=== PATIENT | male | born 1935 | race African-American/Black ===

== ENCOUNTER → 2017-12-14 | Outpatient (CLI) | payer MEDICARE ==
[2017-12-14 10:29] LABS: Anisocytosis Slight; HCT 45.6 % (39.0-53.0); HGB 14.6 gm/dL (13.0-17.5); Microcytosis Slight; Platelet Count 159 k/uL (150-450); RBC 5.85 m/uL (4.30-5.90); RDW 16.8 % (11.5-15.5); WBC 8.3 k/uL (3.8-10.6)
[2017-12-14 10:35] LABS: Anion Gap 10 mmol/L; Blood Urea Nitrogen 18 mg/dL (9-20); Carbon Dioxide 30 mmol/L (22-30); Chloride 101 mmol/L (98-107); Potassium 4.5 mmol/L (3.5-5.1); Sodium 141 mmol/L (137-145)
== END | disposition home or self-care (01) ==
LOC: LABWHC1 10:01
PROVIDERS: ATTEND Internal Medicine Interventional Cardiology
DX: Z01.812 Encounter for preprocedural laboratory examination (principal); R94.39 Abnormal result of other cardiovascular function study
CPT/HCPCS: 36415; 80051; 82565; 84520; 85027

== ENCOUNTER → 2017-12-18 | Day surgery (SDC) | payer MEDICARE ==
[2017-12-14 10:49] VITALS: BMI 29.5
[~2017-12-18] MED LIST: ALPRAZolam 0.25 MG TAB PO PRN; ALPRAZolam 0.5 MG TAB PO PRN; ASPIRIN 325 MG TAB PO STA; ATORVASTATIN 80 MG TAB PO STA; NITROGLYCERIN SL TABS 0.4 MG TAB SUBLINGUAL PRN; SODIUM CHLORIDE 0.9% 1,000 ML in EMPTY BAG 1 BAG IV ONE
[2017-12-18 09:54] VITALS: BP 127/67; PULSE 75; RESP 18; TEMP 97.6
== END ==
LOC: CATHCVL 09:31
PROVIDERS: ATTEND Internal Medicine Interventional Cardiology
DX: R94.39 Abnormal result of other cardiovascular function study (principal); Z53.9 Procedure and treatment not carried out, unspecified reason

== ENCOUNTER 2017-12-19 09:49 | Day surgery (SDC) | payer MEDICARE ==
[2017-12-19 10:14] VITALS: TEMP 97.7
[2017-12-19] MEDS ORDERED: MIDAZOLAM 2 MG/2 ML VIAL ONE (11:23)
[2017-12-19] MEDS ORDERED: LIDOCAINE 1% INJ 10MG/ML (20 ML MDV) ONE (11:25)
[2017-12-19] MEDS ORDERED: fentaNYL (PF) 50 MCG/ML 2 ML AMP ONE (11:54)
[2017-12-19] MEDS ORDERED: fentaNYL (PF) 50 MCG/ML 2 ML AMP IVP ONE ×2 (11:57)
[2017-12-19] MEDS ORDERED: LIDOCAINE 1% INJ 10MG/ML (20 ML MDV) SQ ONE (11:57)
[2017-12-19] MEDS ORDERED: IOPAMIDOL-370 125ML BTL INJ ONE (12:08)
[2017-12-19] MEDS ORDERED: SODIUM CHLORIDE 0.9% 1,000 ML IV SCH (12:15)
[2017-12-19] MEDS ORDERED: RX INFO: IV CONTRAST WAS GIVEN 1 EACH MISC MISCELLANE PRN (12:15)
--- NOTE | 2017-12-19 13:01 | CC ---
CARDIAC CATHETERIZATION REPORT DATE OF SERVICE: 12/19/2017 PERFORMING PHYSICIAN: Logan Marie MD. PROCEDURE PERFORMED: 1. Selective right and left coronary angiogram. 2. Left heart catheterization. INDICATION: This is a pleasant 81-year-old gentleman with known history of coronary artery disease and prior stenting of the proximal LAD in the past, was experiencing recently intermittent episodes of chest discomfort. He underwent a stress test as an outpatient and that came in to be abnormal with evidence of ischemia. Because of that, a heart catheterization was recommended. APPROACH: Right common femoral artery. LEVEL OF SEDATION: Moderate with sedation length of 15 minutes. PROCEDURE DESCRIPTION: After obtaining an informed consent, the patient was brought to the cardiac clinical lab assistant. The right common femoral artery was cannulated using micropuncture technique. The micropuncture wire passed easily, then I placed a 6-Uzbek sheath in the right common femoral artery. After that, I did selective right and left coronary angiogram using JR4 and JL4 catheters. Left heart catheterization was performed using 6-Uzbek pigtail catheter. The procedure was completed without any complication. CORONARY ANGIOGRAM: 1. The RCA is a large caliber vessel. It is a dominant vessel. The proximal RCA has a lesion, appeared to be in the range of 70%. The mid RCA by the bifurcation of the acute marginal branch is chronically occluded and fills by collateral from the left coronary artery system. 2. The left main has mild disease only. It bifurcates into the circumflex and left anterior descending artery. 3. Left circumflex is a large caliber vessel. It is a nondominant vessel. The proximal circumflex has mild disease only and gives rise into the first OM branch which has moderate disease in the range of 50%. The mid circumflex appeared to be angiographically normal and gives rise into a second OM branch which has mild disease only. [id number] collaterals from the circumflex were seen. 4. The LAD, the proximal LAD appeared to be stented and the stent is patent. The mid LAD appeared to have mild disease only and the LAD distally has mild disease only. The LAD in the in the proximal portion gives rise into a diagonal branch which has an ostial disease appeared to be in the range of 60% to 70%. HEMODYNAMICS: The left ventricular end-diastolic pressure was 12 mmHg and no gradient was identified across the aortic valve. CONCLUSION: 1. 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 2. Intermediate disease involving the first obtuse marginal branch of the left circumflex. 3. Patent stent in the proximal left anterior descending artery. Intermediate to severe disease involving the ostial first diagonal branch of the left anterior descending artery. .. POSTPROCEDURE MANAGEMENT: 1. Maximize medical treatment. 2. Follow up with the patient. ANJALI / IJN: [id number] /
--- NOTE | 2017-12-19 13:04 | LTR ---
December 19, 2017 Re: Christoph Olvera Dear Dr. Rocha: Mr. Christoph Olvera underwent today a heart catheterization and that revealed patent stent in the proximal left anterior descending artery. As you remember, the stent was placed back in 2015. I want to thank you for allowing me to participate in his care and please do not hesitate to call if you have any question or concern. Sincerely, Logan Marie MD MMPRECIOUS / AARON: [id number] /
[2017-12-19 14:46] VITALS: PULSE 60
[2017-12-19 19:44] VITALS: BP 102/62; RESP 20
== END 2017-12-19 19:35 | disposition home or self-care (01) ==
LOC: CATHCVL 09:49
PROVIDERS: ATTEND Internal Medicine Interventional Cardiology
DX: I25.110 Atherosclerotic heart disease of native coronary artery with unstable angina pectoris (principal); I25.82 Chronic total occlusion of coronary artery; I10 Essential (primary) hypertension; E78.5 Hyperlipidemia, unspecified; Z87.891 Personal history of nicotine dependence; Z95.5 Presence of coronary angioplasty implant and graft; Z79.82 Long term (current) use of aspirin; Z79.899 Other long term (current) drug therapy
CPT/HCPCS: 93458; C1894; C1769; J2001; J3010; Q9967

== ENCOUNTER 2020-08-25 03:51 | Inpatient (IN) | payer MEDICARE ==
[2020-08-25] MEDS ORDERED: SODIUM CHLORIDE 0.9% 500 ML 500 ML IV STA ×2 (03:56→06:21)
[2020-08-25] MEDS ORDERED: DEXAMETHASONE SOD PHOSPHATE 10 MG/ML 1 ML VIAL IV STA (03:56)
[2020-08-25] MEDS ORDERED: ALBUTEROL HFA INHALER INHALATION STA (03:56)
[2020-08-25] MEDS ORDERED: KETOROLAC 15 MG/ML 1 ML VIAL IVP STA (03:56)
[2020-08-25] MEDS ORDERED: SODIUM CHLORIDE 0.9% 1,000 ML IV STA ×3 (03:56→06:21)
[2020-08-25] MEDS ORDERED: ACETAMINOPHEN TAB 500 MG TAB PO STA (03:56)
[2020-08-25] MEDS ORDERED: DILTIAZEM DRIP BOLUS FROM BAG 1 MG SOLN IV ONE (04:05)
[2020-08-25] MEDS ORDERED: DILTIAZEM 125 MG in SODIUM CHLORIDE 0.9% 100 ML IV SCH (04:15)
[2020-08-25 04:23] LABS: Basophils # (A) 0.1 k/uL (0-0.2); Basophils % (A) 1 %; Eosinophils % (A) 0 %; HCT 52.4 % (39.0-53.0); HGB 17.5 gm/dL (13.0-17.5); Lymphocytes # (A) 1.9 k/uL (1.0-4.8); Lymphocytes % (A) 25 %; MCH 27.8 pg (25.0-35.0); MCHC 33.5 g/dL (31.0-37.0); MCV 82.9 fL (80.0-100.0); Monocytes # (A) 0.3 k/uL (0-1.0); Monocytes % (A) 4 %; Neutrophils # (A) 5.1 k/uL (1.3-7.7); Neutrophils % (A) 67 %; Platelet Count 110 k/uL (150-450); RBC 6.32 m/uL (4.30-5.90); RDW 14.9 % (11.5-15.5); WBC 7.6 k/uL (3.8-10.6)
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
[2020-08-25 04:40] LABS: Albumin 4.2 g/dL (3.5-5.0); C Reactive Protein 58.7 mg/L (<10.0); Total Bilirubin 1.1 mg/dL (0.2-1.3); Total Protein 7.6 g/dL (6.3-8.2)
--- NOTE | 2020-08-25 04:55 | XR ---
EXAM: XR Chest, 1 View CLINICAL HISTORY: ITS.REASON XR Reason: Suspected COVID-19 pneumonia TECHNIQUE: Frontal view of the chest. COMPARISON: No relevant prior studies available. FINDINGS: Lungs: Moderate amount of airspace opacities over bilateral middle and lower lung zones. Pleural space: Unremarkable. No pneumothorax. Heart: Unremarkable. No cardiomegaly. Mediastinum: Unremarkable. Bones/joints: No acute findings. IMPRESSION: Bilateral pneumonia
[2020-08-25 04:59] LABS: Partial Thromboplastin Time 28.2 sec (22.0-30.0); Prothrombin Time 10.8 sec (9.0-12.0)
[2020-08-25 05:07] LABS: D-Dimer 0.91 mg/L FEU (<0.60)
[2020-08-25 05:23] LABS: Magnesium 2.1 mg/dL (1.6-2.3); Potassium 3.6 mmol/L (3.5-5.1)
[2020-08-25] MEDS ORDERED: NITROGLYCERIN SL TABS 0.4 MG TAB SUBLINGUAL PRN (06:21)
[2020-08-25] MEDS ORDERED: NALOXONE 0.4 MG/ML 1 ML VIAL IV PRN (06:21)
[2020-08-25] MEDS ORDERED: ONDANSETRON 4 MG/2 ML VIAL IVP PRN (06:21)
[2020-08-25] MEDS ORDERED: IBUPROFEN 400 MG TAB PO PRN (06:21)
[2020-08-25] MEDS ORDERED: ACETAMINOPHEN TAB 325 MG TAB PO PRN (06:21)
[2020-08-25] MEDS: SODIUM CHLORIDE 0.9% 1,000 ML IV SCH ×5 (07:04→17:37)
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
[2020-08-25] MEDS: APIXABAN 2.5 MG TABLET PO SCH ×2 (08:53→21:01)
[2020-08-25] MEDS: METOPROLOL TARTRATE 50 MG TAB PO SCH ×2 (08:53→21:01)
[2020-08-25] MEDS: ALBUTEROL HFA INHALER INHALATION SCH ×3 (08:59→21:05)
[2020-08-25] MEDS ORDERED: ENOXAPARIN 40 MG/0.4 ML SYRINGE SQ SCH (09:00)
--- NOTE | 2020-08-25 11:00 | ECHOF ---
Referral Reason:new atrial fibrillation, shortness of breath MEASUREMENTS -------- HEIGHT: 182.9 cm WEIGHT: 99.8 kg BP: IVSd: 1.2 cm (0.6 - 1.1) LVIDd: 4.1 cm (3.9 - 5.3) LVPWd: 1.1 cm (0.6 - 1.1) IVSs: 1.5 cm LVIDs: 1.7 cm LVPWs: 1.9 cm LAESV Index (A-L): 24.54 ml/m Ao Diam: 4.1 cm (2.0 - 3.7) AV Cusp: 2.0 cm (1.5 - 2.6) LA Diam: 3.1 cm (2.7 - 3.8) RAP: 20.00 mmHg RVSP: 54.86 mmHg FINDINGS -------- Atrial fibrillation. This was a technically good study. The left ventricular size is normal. There is borderline concentric left ventricular hypertrophy. Overall left ventricular systolic function is normal with, an EF between 55 - 60 %. Left ventricul ar fillimg pressure cannot be estimated due to Atrial fibrillation. The right ventricle is normal in size. The left atrial size is normal. Normal LA size by volume 22+/-6 ml/m2. The right atrium was not well visualized. Interatrial and interventricular septum intact. The aortic valve is trileaflet and appears structurally normal. The mitral valve is normal. The mitral valve leaflets are mildly thickened. No mitral regurgitati on. The tricuspid valve appears structurally normal. Mild tricuspid regurgitation present. There is m oderate pulmonary hypertension. The right ventricular systolic pressure, as measured by Doppler, is 54.86mmHg. There is no pulmonic regurgitation present. The aortic root size is normal. The inferior vena cava is dilated with no significant inspiratory collapse which is consistent estima kristin right atrial pressure of >20 mmHg. There is no pericardial effusion. CONCLUSIONS -------- 1. The left ventricular size is normal. 2. There is borderline concentric left ventricular hypertrophy. 3. Overall left ventricular systolic function is normal with, an EF between 55 - 60 %. 4. Left ventricular fillimg pressure cannot be estimated due to Atrial fibrillation. 5. The mitral valve leaflets are mildly thickened. 6. Mild tricuspid regurgitation present. 7. There is moderate pulmonary hypertension. 8. The right ventricular systolic pressure, as measured by Doppler, is 54.86mmHg. 9. The inferior vena cava is dilated with no significant inspiratory collapse which is consistent est imated right atrial pressure of >20 mmHg. 10. There is no pericardial effusion. DIPPER OPERATOR: Shahla Peña RDCS
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
[2020-08-25] MEDS: INSULIN ASPART (NovoLOG) 100 UNIT/ML VIAL SQ SCH ×3 (11:44→21:01)
[2020-08-25] MEDS: dexAMETHasone 2 MG TAB PO SCH (11:44)
[2020-08-25 16:57] LABS: Glucose,Whole Blood 161 mg/dL (75-99)
[2020-08-25 16:57] LABS: Glucose,Whole Blood 341 mg/dL (75-99)
[2020-08-25 19:54] LABS: Glucose,Whole Blood 228 mg/dL (75-99)
[2020-08-26] MEDS: SODIUM CHLORIDE 0.9% 1,000 ML IV SCH ×2 (03:48→07:02)
[2020-08-26 05:23] LABS: Glucose,Whole Blood 191 mg/dL (75-99)
[2020-08-26] MEDS: INSULIN ASPART (NovoLOG) 100 UNIT/ML VIAL SQ SCH ×4 (07:03→20:16)
[2020-08-26] MEDS: METOPROLOL TARTRATE 50 MG TAB PO SCH ×2 (08:27→20:15)
[2020-08-26] MEDS: APIXABAN 2.5 MG TABLET PO SCH ×2 (08:27→20:16)
[2020-08-26] MEDS: dexAMETHasone 2 MG TAB PO SCH (08:27)
[2020-08-26] MEDS: ASPIRIN 81 MG PO SCH (08:27)
[2020-08-26] MEDS: ALBUTEROL HFA INHALER INHALATION SCH ×3 (08:28→20:45)
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
[2020-08-26] MEDS ORDERED: ASPIRIN 325 MG TAB PO SCH (09:00)
[2020-08-26 09:28] LABS: Basophils % (A) 0 %; Eosinophils % (A) 0 %; HCT 44.5 % (39.0-53.0); HGB 15.2 gm/dL (13.0-17.5); Lymphocytes # (A) 0.8 k/uL (1.0-4.8); Lymphocytes % (A) 11 %; MCHC 34.3 g/dL (31.0-37.0); MCV 81.6 fL (80.0-100.0); Mean Platelet Volume 10.7; Monocytes # (A) 0.4 k/uL (0-1.0); Monocytes % (A) 5 %; Neutrophils # (A) 5.8 k/uL (1.3-7.7); Neutrophils % (A) 83 %; Platelet Count 116 k/uL (150-450); RBC 5.45 m/uL (4.30-5.90); RDW 14.9 % (11.5-15.5)
[2020-08-26 09:46] LABS: ALT 65 U/L (4-49); AST 160 U/L (17-59); African American GFR (CKD) >90 (>60 ml/min/1.73 sqM); Albumin 3.1 g/dL (3.5-5.0); Alkaline Phosphatase 97 U/L (38-126); Anion Gap 6 mmol/L; Blood Urea Nitrogen 26 mg/dL (9-20); Calcium 7.8 mg/dL (8.4-10.2); Carbon Dioxide 28 mmol/L (22-30); Chloride 104 mmol/L (98-107); Cholesterol 130 mg/dL (<200); Glucose 146 mg/dL (74-99); HDL Cholesterol 34 mg/dL (40-60); LDL Cholesterol,Calculated 61 mg/dL (0-99); Magnesium 2.1 mg/dL (1.6-2.3); Non-African American GFR(CKD) 84 (>60 ml/min/1.73 sqM); Phosphorus 2.7 mg/dL (2.5-4.5); Potassium 3.5 mmol/L (3.5-5.1); Sodium 138 mmol/L (137-145); Total Bilirubin 0.6 mg/dL (0.2-1.3); Total Protein 6.1 g/dL (6.3-8.2); Triglycerides 176 mg/dL (<150)
--- NOTE | 2020-08-26 09:56 | XR ---
EXAMINATION TYPE: XR chest 1V portable DATE OF EXAM: 08/26/2020 COMPARISON: 08/25/2020 INDICATION: Covid TECHNIQUE: Single frontal view of the chest is obtained. FINDINGS: The heart size is normal. The pulmonary vasculature is normal. Bibasilar infiltrates are present. IMPRESSION: 1. Improving bibasilar infiltrates
[2020-08-26 10:18] LABS: C Reactive Protein 43.7 mg/L (<10.0)
--- NOTE | 2020-08-26 10:25 | P.PN ---
Subjective HISTORY OF PRESENTING ILLNESS This is a pleasant 84-year-old male past medical history significant for coronary artery disease status post stenting of the proximal LAD (07/2015), hypertension, dyslipidemia. He follows in the office with Dr. Marie. We have been asked to see in consultation for new onset atrial fibrillation. Patient is seen and examined in the emergency department, lying on his side, appears short of breath. Patient states 8 days ago started having symptoms of decreased appetite, chills, fever. Over the past week he has been feeling more short of breath, increased abdominal pain. Found to be Covid-19 positive. Denies chest pain, palpitations, lower extremity edema, dizziness or lightheadedness. EKG reveals irregular rhythm with PVCs. Patient started on cardizem drip at 5mg/hr and subQ lovenox. Patient denies history of Diabetes, Stroke or NH. Denies tobacco or alcohol use. Laboratory data reviewed, D-dimer 0.91, Sodium 136, K 3.6, sCr 1.38, BUN 27, Lactate 11.1-->2.9, AST 203, ALT 65, elevated LDH, elevated CRP. Vital signs BP 94/64 HR 88 SpO2 93% on 15L high flow nasal cannula, currently afebrile. Home cardiac medications include imdur 30mg daily, hydrochlorothiazide 25mg daily, metoprolol tartrate 25mg BID, lipitor 40mg nightly, aspirin daily. 08/26/2020 Pt is seen and examined sitting up eating breakfast in no acute distress. He states he didn't sleep too well last night due to interruptions but no worsening shortness of breath. He does continue to have exertional dyspnea.Telemetry tracings reviewed, he is currently in sinus mechanism with frequent PVCs. Blood pressure 113/58 heart rate 77 afebrile and maintaining oxygen saturation on nasal cannula. CBC unremarkable, sodium 138, potassium 3.5, creatinine 0.75, magnesium 2.1, LDL 61 and HDL 34. TSH checked yesterday was 0.602. Currently maintained on Eliquis 2.5 mg twice a day, aspirin 81 mg daily and metoprolol 50 mg twice a day. Echocardiogram obtained reveals preserved LV systolic function with ejection fraction 55-60% with tricuspid regurgitation and pulmonary hypertension with an RVSP of 54 mmHg. PHYSICAL EXAMINATION CONSTITUTIONAL: No apparent distress. HEENT: Head is normocephalic. Pupils are equal, round. Sclerae anicteric. Mucous membranes of the mouth are moist. No JVD. No carotid bruit. CHEST EXAMINATION: Lungs are diminished in the bilateral bases to auscultation. No chest wall tenderness is noted on palpation or with deep breathing. HEART EXAMINATION: Irregular rate and rhythm. S1, S2 heard. No murmurs, gallops or rub. EXTREMITIES: 2+ peripheral pulses, no lower extremity edema and no calf tenderness. ASSESSMENT COVID-19 Paroxysmal atrial fibrillation [id number] score 3, currently maintaining sinus mechanism Coronary artery disease status post stenting of the proximal LAD (07/2015) Troponin leak secondary to JOSÉ MIGUEL and Covid Hypertension Hyperlipidemia Transaminitis Acute Kidney Injury Lactic acidosis PLAN He is maintaining sinus rhythm on the monitor. Continue eliquis and aspirin at this time. Ongoing treatment of COVID [address] Marie in the outpatient setting when stable for discharge Nurse Practitioner note has been reviewed, I agree with a documented findings and plan of care. Patient was seen and examined. Objective - Vital Signs Vital signs: Vital Signs Temp 98.4 F 08/26/20 03:47 Pulse 70 08/26/20 03:47 Resp 20 08/26/20 03:47 BP 110/78 08/26/20 03:47 Pulse Ox 95 08/26/20 03:47 Intake & Output 08/25/20 08/26/20 08/26/20 18:59 06:59 18:59 Intake Total 1062 690 Output Total 450 600 Balance 612 90 Weight 99.79 kg 99.8 kg Intake: Intake, IV Titration 600 450 Amount Sodium Chloride 0.9% 1, 600 450 000 ml @ 75 mls/hr IV . [id number] [facility] Rx#:[id number] Oral 462 240 Output: Urine 450 600 Other: Voiding Method Urinal Urinal # Voids 1 - Labs CBC & Chem 7: 08/26/20 06:35 08/26/20 06:35 Labs: Abnormal Lab Results - Last 24 Hours (Table) 08/25/20 08/25/20 08/25/20 Range/Units 04:00 07:30 07:30 POC Glucose (mg/dL) (75-99) mg/dL Plasma Lactic Acid Ravi 2.9 H* (0.7-2.0) mmol/L Troponin I 0.226 H* (0.000-0.034) ng/mL Procalcitonin 0.34 H (0.02-0.09) ng/mL 08/25/20 08/25/20 08/25/20 Range/Units 10:25 10:43 11:34 POC Glucose (mg/dL) 341 H (75-99) mg/dL Plasma Lactic Acid Ravi 2.9 H* (0.7-2.0) mmol/L Troponin I 0.304 H* (0.000-0.034) ng/mL Procalcitonin (0.02-0.09) ng/mL 08/25/20 08/25/20 08/25/20 Range/Units 14:00 16:40 16:49 POC Glucose (mg/dL) 161 H (75-99) mg/dL Plasma Lactic Acid Ravi 3.4 H* 2.6 H* (0.7-2.0) mmol/L Troponin I (0.000-0.034) ng/mL Procalcitonin (0.02-0.09) ng/mL 08/25/20 08/25/20 08/26/20 Range/Units 19:52 20:01 05:21 POC Glucose (mg/dL) 228 H 191 H (75-99) mg/dL Plasma Lactic Acid Ravi 2.5 H* (0.7-2.0) mmol/L Troponin I (0.000-0.034) ng/mL Procalcitonin (0.02-0.09) ng/mL
--- NOTE | 2020-08-26 10:46 | P.PN ---
Subjective Progress Note Date: 08/26/20 Being seen by pulmonary because of COVID 19 related infection/pneumonia. The patient is known to have CAD hypertension and hyperlipidemia. He started having symptoms of decreased appetite and chills and fever approximately 8 days ago. He was also found to have a new onset atrial fibrillation by cardiology and he came into the emergency having significant shortness of breath. He was started on Cardizem drip at 5 mg an hour for rate control. Meanwhile, his chest x-ray showed patchy bilateral pulmonary infiltrates mainly involving the lower lobes bilaterally consistent with community related pneumonia. The patient also had blood work that showing a normal white cell count, platelet refuses 110, d-dimer is at 0.9, creatinine is at 1.3, lactic acid level was initiated 11 dropped down to 2.9, LDH is 25-0 and the CRP is at 58. Troponin was 0.226 at a time of admission. Currently the patient is on 15 L of oxygen by nasal cannula with a pulse ox of 91%. The patient is hemodynamically stable at this point in time. The patient is on Eliquis 2.5 mg by mouth twice a day. He also thought to be started on Decadron this milligrams IV every 24 hours. He did receive his first dose of Decadron in the emergency department. Echocardiogram showing a normal ejection fraction of 50-55%. He is known to have CAD and previous cardiac catheterization from 2018 showed occluded mid RCA, intermittent disease in the circumflex, patent stent in the LAD. 08/26/2020 the patient remains on 15 L of oxygen by nasal cannula. With exertion, he gets short of breath. At rest he is doing well. He is still in a sinus rhythm. He remains on steroids regarding his Covid associated pneumonia. No angina. No palpitations. No syncope. No fever. No chills. No nausea vomiting or diarrhea. The patient's cardiac rhythm is back to sinus. He is not having any cardiac arrhythmias. No fibrillation for now. No chest pain. No nausea. No vomiting. The patient is on long-term anticoagulation with Eliquis 2.5 mg by mouth twice a day. Echocardiogram was within normal limits. Objective - Vital Signs Vital signs: Vital Signs Temp 98.1 F 08/26/20 08:15 Pulse 76 08/26/20 08:15 Resp 20 08/26/20 08:15 BP 127/67 08/26/20 08:15 Pulse Ox 89 L 08/26/20 08:15 Intake & Output 08/25/20 08/26/20 08/26/20 18:59 06:59 18:59 Intake Total 1062 690 780 Output Total 450 600 Balance 612 90 780 Weight 99.79 kg 99.8 kg Intake: Intake, IV Titration 600 450 600 Amount Sodium Chloride 0.9% 1, 600 450 600 000 ml @ 75 mls/hr IV . [id number] [facility] Rx#:[id number] Oral 462 240 180 Output: Urine 450 600 Other: Voiding Method Urinal Urinal # Voids 1 - Exam CONSTITUTIONAL: No apparent distress. Currently on 15 liters by nasal cannula Head exam was generally normal. There was no scleral icterus or corneal arcus. Mucous membranes were moist. HEENT: Head is normocephalic. Pupils are equal, round. Sclerae anicteric. Mucous membranes of the mouth are moist. No JVD. No carotid bruit. CHEST EXAMINATION: Lungs are diminished in the bilateral bases to auscultation. No chest wall tenderness is noted on palpation or with deep breathing. The patient has crackles in lung bases bilaterally. HEART EXAMINATION: Heart sounds are distant.Cardiac exam revealed the PMI to be normally situated and sized. The rhythm was regular and no extrasystoles were noted during several minutes of auscultation. The first and second heart sounds were normal and physiologic splitting of the second heart sound was noted. There were no murmurs, rubs, clicks, or gallops. ABDOMEN: Soft, nontender. Positive bowel sounds. EXTREMITIES: 2+ peripheral pulses, no lower extremity edema and no calf tenderness. SKIN: intact NEUROLOGIC EXAMINATION: Patient is awake, alert and oriented x3. - Labs CBC & Chem 7: 08/26/20 06:35 08/26/20 06:35 Labs: Abnormal Lab Results - Last 24 Hours (Table) 08/25/20 08/25/20 08/25/20 Range/Units 04:00 10:25 10:43 Plt Count (150-450) k/uL Lymphocytes # (1.0-4.8) k/uL BUN (9-20) mg/dL Glucose (74-99) mg/dL POC Glucose (mg/dL) (75-99) mg/dL Plasma Lactic Acid Ravi 2.9 H* (0.7-2.0) mmol/L Calcium (8.4-10.2) mg/dL AST (17-59) U/L ALT (4-49) U/L Troponin I 0.304 H* (0.000-0.034) ng/mL Total Protein (6.3-8.2) g/dL Albumin (3.5-5.0) g/dL Triglycerides (<150) mg/dL HDL Cholesterol (40-60) mg/dL Procalcitonin 0.34 H (0.02-0.09) ng/mL 08/25/20 08/25/20 08/25/20 Range/Units 11:34 14:00 16:40 Plt Count (150-450) k/uL Lymphocytes # (1.0-4.8) k/uL BUN (9-20) mg/dL Glucose (74-99) mg/dL POC Glucose (mg/dL) 341 H (75-99) mg/dL Plasma Lactic Acid Ravi 3.4 H* 2.6 H* (0.7-2.0) mmol/L Calcium (8.4-10.2) mg/dL AST (17-59) U/L ALT (4-49) U/L Troponin I (0.000-0.034) ng/mL Total Protein (6.3-8.2) g/dL Albumin (3.5-5.0) g/dL Triglycerides (<150) mg/dL HDL Cholesterol (40-60) mg/dL Procalcitonin (0.02-0.09) ng/mL 08/25/20 08/25/20 08/25/20 Range/Units 16:49 19:52 20:01 Plt Count (150-450) k/uL Lymphocytes # (1.0-4.8) k/uL BUN (9-20) mg/dL Glucose (74-99) mg/dL POC Glucose (mg/dL) 161 H 228 H (75-99) mg/dL Plasma Lactic Acid Ravi 2.5 H* (0.7-2.0) mmol/L Calcium (8.4-10.2) mg/dL AST (17-59) U/L ALT (4-49) U/L Troponin I (0.000-0.034) ng/mL Total Protein (6.3-8.2) g/dL Albumin (3.5-5.0) g/dL Triglycerides (<150) mg/dL HDL Cholesterol (40-60) mg/dL Procalcitonin (0.02-0.09) ng/mL 08/26/20 08/26/20 08/26/20 Range/Units 05:21 06:35 06:35 Plt Count 116 L (150-450) k/uL Lymphocytes # 0.8 L (1.0-4.8) k/uL BUN 26 H (9-20) mg/dL Glucose 146 H (74-99) mg/dL POC Glucose (mg/dL) 191 H (75-99) mg/dL Plasma Lactic Acid Ravi (0.7-2.0) mmol/L Calcium 7.8 L (8.4-10.2) mg/dL AST 160 H (17-59) U/L ALT 65 H (4-49) U/L Troponin I (0.000-0.034) ng/mL Total Protein 6.1 L (6.3-8.2) g/dL Albumin 3.1 L (3.5-5.0) g/dL Triglycerides 176 H (<150) mg/dL HDL Cholesterol 34 L (40-60) mg/dL Procalcitonin (0.02-0.09) ng/mL Assessment and Plan Plan: 1 acute bilateral COVID 19 related pneumonia. Patient's symptoms started approximately 8 days ago. The patient is presenting with worsening shortness of breath at atrial fibrillation with rapid ventricular response. The patient is currently on 15 L of oxygen by nasal cannula. Chest x-ray was noted. The chest x-ray stable for today. No interval worsening in his shortness of breath. He continues to be on Decadron. He is back to normal sinus rhythm. 2 acute hypoxic respiratory failure secondary to above the patient is currently on 15 by nasal cannula 3 new-onset atrial fibrillation with RVR, current rhythm is sinus and the patient was taken off Cardizem drip and currently the patient is on Eliquis 4 acute lactic acidosis, improved 5 troponin leak, secondary to above, rule out colostomy 6 coronary artery disease with previous coronary stenting of the LAD 7 hypertension 8 hyperlipidemia 9 severe osteoarthritis and limited mobility and gait and the patient walks around with the help of a walker Plan Continue oxygen at high flow 15 L Not a candidate for Remdesivir The patient will be given Decadron 6 mg IV every 24 hours May add Tocilizumab if his condition gets worse his condition is stable for now Monitor the prevent the markers Add the multivitamins Eliquis 2.5 mg by mouth twice a day regarding his atrial fibrillation Cardiology regarding A. fib, troponin leak and CAD , current cardiac rhythm is sinus We'll continue to follow
[2020-08-26 11:03] LABS: LDH 2232 U/L (313-618)
[2020-08-26 11:41] LABS: Glucose,Whole Blood 172 mg/dL (75-99)
[2020-08-26] MEDS ORDERED: Potassium Replacement Protocol 1 EACH MISC MISCELLANE PRN (13:16)
--- NOTE | 2020-08-26 13:49 | P.PN ---
Subjective Progress Note Date: 08/26/20 Christoph Olvera is an 84 yo M with PMH of CAD s/p stenting of LAD, HTN and HLD who presented to the ED with shortness of breath. Patient states 8 days ago started having symptoms of decreased appetite, chills, fever. Over the past week he has been feeling more short of breath, increased abdominal pain. On presentation he was found to be in atrial fibrillation with RVR rate of 190, hypoxic requiring high flow O2. COVID PCR positive. Patient started on cardizem drip at 5mg/hr and lovenox. Laboratory data reviewed, D-dimer 0.91, Sodium 136, K 3.6, Cr 1.38, BUN 27, Lactate 11.1->2.9, AST 203, ALT 65, elevated LDH, elevated CRP. He denies tobacco or alcohol use. 08/26/2020 maintained on 15 L high flow with O2 sats in the high 80s to low 90s. Chest x-ray reporting improving bibasilar infiltrates. Continues on Decadron. Breathing improving, reporting exertional shortness of breath. Reports occasional cough. Denies chest pain, palpitations. Telemetry reporting sinus rhythm with PVCs. Magnesium 2.1, potassium 3.5. Echo reporting preserved LV function, EF 55-60%, moderate pulmonary hypertension. Anticoagulated on Eliquis. Denies nausea vomiting or diarrhea Objective - Vital Signs Vital signs: Vital Signs Temp 98.3 F 08/26/20 12:00 Pulse 80 08/26/20 12:00 Resp 20 08/26/20 12:00 BP 127/67 08/26/20 08:15 Pulse Ox 94 L 08/26/20 12:00 Intake & Output 08/25/20 08/26/20 08/26/20 18:59 06:59 18:59 Intake Total 1062 690 780 Output Total 450 600 350 Balance 612 90 430 Weight 99.79 kg 99.8 kg Intake: Intake, IV Titration 600 450 600 Amount Sodium Chloride 0.9% 1, 600 450 600 000 ml @ 75 mls/hr IV . [id number] [facility] Rx#:[id number] Oral 462 240 180 Output: Urine 450 600 350 Other: Voiding Method Urinal Urinal # Voids 1 - Exam Gen: Sitting up in bed,NAD, on high flow O2 HEENT: normocephalic, atraumatic. mucus membranes moist Neck: supple, no thyromegaly, no JVD CV: RRR, no murmur, pulses 2+ Lungs: increased respiratory effort, fine bibasilar crackles Abd: soft nontender, non distended, +BS Neuro: alert and oriented x3, no focal deficit Skin: warm and dry - Labs CBC & Chem 7: 08/26/20 06:35 08/26/20 06:35 Labs: Abnormal Lab Results - Last 24 Hours (Table) 08/25/20 08/25/20 08/25/20 Range/Units 04:00 11:34 14:00 Plt Count (150-450) k/uL Lymphocytes # (1.0-4.8) k/uL BUN (9-20) mg/dL Glucose (74-99) mg/dL POC Glucose (mg/dL) 341 H (75-99) mg/dL Plasma Lactic Acid Ravi 3.4 H* (0.7-2.0) mmol/L Calcium (8.4-10.2) mg/dL AST (17-59) U/L ALT (4-49) U/L Lactate Dehydrogenase (313-618) U/L C-Reactive Protein (<10.0) mg/L Total Protein (6.3-8.2) g/dL Albumin (3.5-5.0) g/dL Triglycerides (<150) mg/dL HDL Cholesterol (40-60) mg/dL Procalcitonin 0.34 H (0.02-0.09) ng/mL 08/25/20 08/25/20 08/25/20 Range/Units 16:40 16:49 19:52 Plt Count (150-450) k/uL Lymphocytes # (1.0-4.8) k/uL BUN (9-20) mg/dL Glucose (74-99) mg/dL POC Glucose (mg/dL) 161 H 228 H (75-99) mg/dL Plasma Lactic Acid Ravi 2.6 H* (0.7-2.0) mmol/L Calcium (8.4-10.2) mg/dL AST (17-59) U/L ALT (4-49) U/L Lactate Dehydrogenase (313-618) U/L C-Reactive Protein (<10.0) mg/L Total Protein (6.3-8.2) g/dL Albumin (3.5-5.0) g/dL Triglycerides (<150) mg/dL HDL Cholesterol (40-60) mg/dL Procalcitonin (0.02-0.09) ng/mL 08/25/20 08/26/20 08/26/20 Range/Units 20:01 05:21 06:35 Plt Count (150-450) k/uL Lymphocytes # (1.0-4.8) k/uL BUN 26 H (9-20) mg/dL Glucose 146 H (74-99) mg/dL POC Glucose (mg/dL) 191 H (75-99) mg/dL Plasma Lactic Acid Ravi 2.5 H* (0.7-2.0) mmol/L Calcium 7.8 L (8.4-10.2) mg/dL AST 160 H (17-59) U/L ALT 65 H (4-49) U/L Lactate Dehydrogenase 2232 H (313-618) U/L C-Reactive Protein 43.7 H (<10.0) mg/L Total Protein 6.1 L (6.3-8.2) g/dL Albumin 3.1 L (3.5-5.0) g/dL Triglycerides 176 H (<150) mg/dL HDL Cholesterol 34 L (40-60) mg/dL Procalcitonin (0.02-0.09) ng/mL 08/26/20 08/26/20 Range/Units 06:35 11:40 Plt Count 116 L (150-450) k/uL Lymphocytes # 0.8 L (1.0-4.8) k/uL BUN (9-20) mg/dL Glucose (74-99) mg/dL POC Glucose (mg/dL) 172 H (75-99) mg/dL Plasma Lactic Acid Ravi (0.7-2.0) mmol/L Calcium (8.4-10.2) mg/dL AST (17-59) U/L ALT (4-49) U/L Lactate Dehydrogenase (313-618) U/L C-Reactive Protein (<10.0) mg/L Total Protein (6.3-8.2) g/dL Albumin (3.5-5.0) g/dL Triglycerides (<150) mg/dL HDL Cholesterol (40-60) mg/dL Procalcitonin (0.02-0.09) ng/mL Assessment and Plan Assessment: Acute hypoxic respiratory failure secondary to Covid Pneumonia. Paroxysmal Atrial fibrillation with RVR, new onset, secondary to the above, currently sinus Acute renal failure, improving Transaminitis, improving Lactic acidosis, resolved CAD with history of [place], stenting of LAD Moderate pulmonary hypertension Elevated troponins, secondary to Covid and JOSÉ MIGUEL as per cardiology. Chronic CHF, diastolic dysfunction Hypertension Hyperlipidemia Former nicotine dependence Gait dysfunction, osteoarthritis, uses walker Plan: Continue on current medication regime ,monitoring and symptomatic treatment. Covid cocktail. Continue on Eliquis and aspirin. Prognosis guarded given multiple complex medical issues. The impression and plan of care has been dictated as directed. : I performed a history and examination of this patient, discussed the same with the dictator. I agree with the dictator's note ,documented as a scribe. Any additional findings or plans will be noted.
[2020-08-26] MEDS: POTASSIUM CHLORIDE ER 20 MEQ TAB.ER PO SCH (14:00)
[2020-08-26 16:42] LABS: Glucose,Whole Blood 198 mg/dL (75-99)
[2020-08-26 18:57] LABS: Hemoglobin A1C 7.3 % (4.0-6.0)
[2020-08-26 19:55] LABS: Glucose,Whole Blood 202 mg/dL (75-99)
[2020-08-27] MEDS: SODIUM CHLORIDE 0.9% 1,000 ML IV SCH ×2 (04:49→13:45)
[2020-08-27 06:06] LABS: Glucose,Whole Blood 172 mg/dL (75-99)
[2020-08-27] MEDS: INSULIN ASPART (NovoLOG) 100 UNIT/ML VIAL SQ SCH ×4 (06:53→21:20)
[2020-08-27] MEDS: METOPROLOL TARTRATE 50 MG TAB PO SCH ×2 (08:58→21:20)
[2020-08-27] MEDS: ASPIRIN 81 MG PO SCH (08:58)
[2020-08-27] MEDS: dexAMETHasone 2 MG TAB PO SCH (08:59)
[2020-08-27] MEDS: APIXABAN 2.5 MG TABLET PO SCH ×2 (08:59→21:20)
--- NOTE | 2020-08-27 09:23 | P.PN ---
Subjective HISTORY OF PRESENTING ILLNESS This is a pleasant 84-year-old male past medical history significant for coronary artery disease status post stenting of the proximal LAD (07/2015), hypertension, dyslipidemia. He follows in the office with Dr. Marie. We have been asked to see in consultation for new onset atrial fibrillation. Patient is seen and examined in the emergency department, lying on his side, appears short of breath. Patient states 8 days ago started having symptoms of decreased appetite, chills, fever. Over the past week he has been feeling more short of breath, increased abdominal pain. Found to be Covid-19 positive. Denies chest pain, palpitations, lower extremity edema, dizziness or lightheadedness. EKG reveals irregular rhythm with PVCs. Patient started on cardizem drip at 5mg/hr and subQ lovenox. Patient denies history of Diabetes, Stroke or ME. Denies tobacco or alcohol use. Laboratory data reviewed, D-dimer 0.91, Sodium 136, K 3.6, sCr 1.38, BUN 27, Lactate 11.1-->2.9, AST 203, ALT 65, elevated LDH, elevated CRP. Vital signs BP 94/64 HR 88 SpO2 93% on 15L high flow nasal cannula, currently afebrile. Home cardiac medications include imdur 30mg daily, hydrochlorothiazide 25mg daily, metoprolol tartrate 25mg BID, lipitor 40mg nightly, aspirin daily. 08/26/2020 Pt is seen and examined sitting up at the edge of the bed in no acute distress. He is mildly short of breath as he just got back from using the commode. He states his breathing is labored with activity and improves with rest. He denies chest pain, dizziness or palpitations. Blood pressure 118/84 heart rate 88 maintaining oxygen saturation high flow nasal cannula. PHYSICAL EXAMINATION CONSTITUTIONAL: No apparent distress. HEENT: Head is normocephalic. Pupils are equal, round. Sclerae anicteric. Mucous membranes of the mouth are moist. No JVD. No carotid bruit. CHEST EXAMINATION: Lungs are diminished in the bilateral bases to auscultation. No chest wall tenderness is noted on palpation or with deep breathing. HEART EXAMINATION: Irregular rate and rhythm. S1, S2 heard. No murmurs, gallops or rub. EXTREMITIES: 2+ peripheral pulses, no lower extremity edema and no calf tenderness. ASSESSMENT COVID-19 Paroxysmal atrial fibrillation [id number] score 3, currently maintaining sinus mechanism Coronary artery disease status post stenting of the proximal LAD (07/2015) Troponin leak secondary to JOSÉ MIGUEL and Covid Hypertension Hyperlipidemia Transaminitis Acute Kidney Injury Lactic acidosis PLAN He is maintaining sinus rhythm on the monitor. Continue eliquis and aspirin at this time. Ongoing treatment of COVID 19. We will follow along as needed. Follow up with Dr. Marie in the outpatient setting when stable for discharge. Nurse Practitioner note has been reviewed, I agree with a documented findings and plan of care. Patient was seen and examined. Objective - Vital Signs Vital signs: Vital Signs Temp 98.9 F 08/27/20 04:00 Pulse 88 08/27/20 04:00 Resp 20 08/27/20 07:50 BP 118/84 08/27/20 04:00 Pulse Ox 94 L 08/27/20 04:00 Intake & Output 08/26/20 08/27/20 08/27/20 18:59 06:59 18:59 Intake Total 1020 Output Total 550 450 Balance 470 -450 Weight 100.3 kg Intake: Intake, IV Titration 600 Amount Sodium Chloride 0.9% 1, 600 000 ml @ 75 mls/hr IV . [id number] [facility] Rx#:[id number] Oral 420 Output: Urine 550 450 Other: Voiding Method Urinal - Labs CBC & Chem 7: 08/26/20 06:35 08/26/20 06:35 Labs: Abnormal Lab Results - Last 24 Hours (Table) 08/26/20 08/26/20 08/26/20 Range/Units 06:35 06:35 06:35 Plt Count 116 L (150-450) k/uL Lymphocytes # 0.8 L (1.0-4.8) k/uL BUN 26 H (9-20) mg/dL Glucose 146 H (74-99) mg/dL POC Glucose (mg/dL) (75-99) mg/dL Hemoglobin A1c 7.3 H (4.0-6.0) % Calcium 7.8 L (8.4-10.2) mg/dL AST 160 H (17-59) U/L ALT 65 H (4-49) U/L Lactate Dehydrogenase 2232 H (313-618) U/L C-Reactive Protein 43.7 H (<10.0) mg/L Total Protein 6.1 L (6.3-8.2) g/dL Albumin 3.1 L (3.5-5.0) g/dL Triglycerides 176 H (<150) mg/dL HDL Cholesterol 34 L (40-60) mg/dL 08/26/20 08/26/20 08/26/20 Range/Units 11:40 16:41 19:53 Plt Count (150-450) k/uL Lymphocytes # (1.0-4.8) k/uL BUN (9-20) mg/dL Glucose (74-99) mg/dL POC Glucose (mg/dL) 172 H 198 H 202 H (75-99) mg/dL Hemoglobin A1c (4.0-6.0) % Calcium (8.4-10.2) mg/dL AST (17-59) U/L ALT (4-49) U/L Lactate Dehydrogenase (313-618) U/L C-Reactive Protein (<10.0) mg/L Total Protein (6.3-8.2) g/dL Albumin (3.5-5.0) g/dL Triglycerides (<150) mg/dL HDL Cholesterol (40-60) mg/dL 08/27/20 Range/Units 06:04 Plt Count (150-450) k/uL Lymphocytes # (1.0-4.8) k/uL BUN (9-20) mg/dL Glucose (74-99) mg/dL POC Glucose (mg/dL) 172 H (75-99) mg/dL Hemoglobin A1c (4.0-6.0) % Calcium (8.4-10.2) mg/dL AST (17-59) U/L ALT (4-49) U/L Lactate Dehydrogenase (313-618) U/L C-Reactive Protein (<10.0) mg/L Total Protein (6.3-8.2) g/dL Albumin (3.5-5.0) g/dL Triglycerides (<150) mg/dL HDL Cholesterol (40-60) mg/dL
[2020-08-27] MEDS: ALBUTEROL HFA INHALER INHALATION SCH ×3 (09:34→19:13)
--- NOTE | 2020-08-27 11:37 | P.PN ---
Subjective Progress Note Date: 08/27/20 Being seen by pulmonary because of COVID 19 related infection/pneumonia. The patient is known to have CAD hypertension and hyperlipidemia. He started having symptoms of decreased appetite and chills and fever approximately 8 days ago. He was also found to have a new onset atrial fibrillation by cardiology and he came into the emergency having significant shortness of breath. He was started on Cardizem drip at 5 mg an hour for rate control. Meanwhile, his chest x-ray showed patchy bilateral pulmonary infiltrates mainly involving the lower lobes bilaterally consistent with community related pneumonia. The patient also had blood work that showing a normal white cell count, platelet refuses 110, d-dimer is at 0.9, creatinine is at 1.3, lactic acid level was initiated 11 dropped down to 2.9, LDH is 25-0 and the CRP is at 58. Troponin was 0.226 at a time of admission. Currently the patient is on 15 L of oxygen by nasal cannula with a pulse ox of 91%. The patient is hemodynamically stable at this point in time. The patient is on Eliquis 2.5 mg by mouth twice a day. He also thought to be started on Decadron this milligrams IV every 24 hours. He did receive his first dose of Decadron in the emergency department. Echocardiogram showing a normal ejection fraction of 50-55%. He is known to have CAD and previous cardiac catheterization from 2018 showed occluded mid RCA, intermittent disease in the circumflex, patent stent in the LAD. 08/26/2020 the patient remains on 15 L of oxygen by nasal cannula. With exertion, he gets short of breath. At rest he is doing well. He is still in a sinus rhythm. He remains on steroids regarding his Covid associated pneumonia. No angina. No palpitations. No syncope. No fever. No chills. No nausea vomiting or diarrhea. The patient's cardiac rhythm is back to sinus. He is not having any cardiac arrhythmias. No fibrillation for now. No chest pain. No nausea. No vomiting. The patient is on long-term anticoagulation with Eliquis 2.5 mg by mouth twice a day. Echocardiogram was within normal limits. 08/27/2020, the patient remains on 15 L of oxygen by nasal cannula. No significant improvement or worsening his condition. He is in sinus rhythm and remains on 50 L of oxygen by nasal cannula. His last chest x-ray was from 08/26/2020 and it was showing bilateral pulmonary infiltrates consistent with COVID-19 related pneumonia. No new labs are available from today. The LDH from yesterday was 2-3 to in the CRP level was 43.7. He is also on Eliquis 2.5 mg by mouth twice a day. He is short of breath. On and off his cough . No major improvement. Upon our bedside evaluation, his pulse ox was noted to be at around 81%. A full face mask was also added as the patient is currently mouth breathing. No tachypnea. Able to speak up sentences. Objective - Vital Signs Vital signs: Vital Signs Temp 98.4 F 08/27/20 08:00 Pulse 83 08/27/20 08:00 Resp 22 08/27/20 08:00 BP 150/94 08/27/20 08:00 Pulse Ox 90 L 08/27/20 09:35 Intake & Output 08/26/20 08/27/20 08/27/20 18:59 06:59 18:59 Intake Total 1020 Output Total 550 450 Balance 470 -450 Weight 100.3 kg Intake: Intake, IV Titration 600 Amount Sodium Chloride 0.9% 1, 600 000 ml @ 75 mls/hr IV . [id number] [facility] Rx#:[id number] Oral 420 Output: Urine 550 450 Other: Voiding Method Urinal - Exam CONSTITUTIONAL: No apparent distress. Currently on 15 liters by nasal cannula Head exam was generally normal. There was no scleral icterus or corneal arcus. Mucous membranes were moist. HEENT: Head is normocephalic. Pupils are equal, round. Sclerae anicteric. Mucous membranes of the mouth are moist. No JVD. No carotid bruit. CHEST EXAMINATION: Lungs are diminished in the bilateral bases to auscultation. No chest wall tenderness is noted on palpation or with deep breathing. The patient has crackles in lung bases bilaterally. HEART EXAMINATION: Heart sounds are distant.Cardiac exam revealed the PMI to be normally situated and sized. The rhythm was regular and no extrasystoles were noted during several minutes of auscultation. The first and second heart sounds were normal and physiologic splitting of the second heart sound was noted. There were no murmurs, rubs, clicks, or gallops. ABDOMEN: Soft, nontender. Positive bowel sounds. EXTREMITIES: 2+ peripheral pulses, no lower extremity edema and no calf tenderness. SKIN: intact NEUROLOGIC EXAMINATION: Patient is awake, alert and oriented x3. - Labs CBC & Chem 7: 08/26/20 06:35 08/26/20 06:35 Labs: Abnormal Lab Results - Last 24 Hours (Table) 08/26/20 08/26/20 08/26/20 Range/Units 06:35 11:40 16:41 POC Glucose (mg/dL) 172 H 198 H (75-99) mg/dL Hemoglobin A1c 7.3 H (4.0-6.0) % 08/26/20 08/27/20 Range/Units 19:53 06:04 POC Glucose (mg/dL) 202 H 172 H (75-99) mg/dL Hemoglobin A1c (4.0-6.0) % Assessment and Plan Plan: 1 acute bilateral COVID 19 related pneumonia. Patient's symptoms started approximately 8 days ago. The patient is presenting with worsening shortness of breath at atrial fibrillation with rapid ventricular response. The patient is currently on 15 L of oxygen by nasal cannula. Chest x-ray was noted. The chest x-ray stable for today. No interval worsening in his shortness of breath. He continues to be on Decadron. He is back to normal sinus rhythm. 2 acute hypoxic respiratory failure secondary to above the patient is currently on 15 by nasal cannula 3 new-onset atrial fibrillation with RVR, current rhythm is sinus and the patient was taken off Cardizem drip and currently the patient is on Eliquis 4 acute lactic acidosis, improved 5 troponin leak, secondary to above, rule out colostomy 6 coronary artery disease with previous coronary stenting of the LAD 7 hypertension 8 hyperlipidemia 9 severe osteoarthritis and limited mobility and gait and the patient walks around with the help of a walker Plan Continue oxygen at high flow 15 L the hypoxic on today's evaluation and the patient will be also given a nonrebreather facemask. Not a candidate for Remdesivir The patient will be given Decadron 6 mg IV every 24 hours add Tocilizumab due to persistent hypoxemia and worsening in his oxygenation. Monitor the prevent the markers Add the multivitamins Eliquis 2.5 mg by mouth twice a day regarding his atrial fibrillation Cardiology regarding A. fib, troponin leak and CAD , current cardiac rhythm is sinus We'll continue to follow
[2020-08-27 12:06] LABS: Glucose,Whole Blood 156 mg/dL (75-99)
[2020-08-27] MEDS ORDERED: TOCILIZUMAB 800 MG in SODIUM CHLORIDE 0.9% 60 ML IV ONE (12:30)
[2020-08-27] MEDS ORDERED: HALOPERIDOL LACTATE 5 MG/ML 1 ML VIAL IM ONE (15:11)
--- NOTE | 2020-08-27 16:11 | P.PN ---
Subjective Progress Note Date: 08/27/20 Christoph Olvera is an 84 yo M with PMH of CAD s/p stenting of LAD, HTN and HLD who presented to the ED with shortness of breath. Patient states 8 days ago started having symptoms of decreased appetite, chills, fever. Over the past week he has been feeling more short of breath, increased abdominal pain. On presentation he was found to be in atrial fibrillation with RVR rate of 190, hypoxic requiring high flow O2. COVID PCR positive. Patient started on cardizem drip at 5mg/hr and lovenox. Laboratory data reviewed, D-dimer 0.91, Sodium 136, K 3.6, Cr 1.38, BUN 27, Lactate 11.1->2.9, AST 203, ALT 65, elevated LDH, elevated CRP. He denies tobacco or alcohol use. 08/26/2020 maintained on 15 L high flow with O2 sats in the high 80s to low 90s. Chest x-ray reporting improving bibasilar infiltrates. Continues on Decadron. Breathing improving, reporting exertional shortness of breath. Reports occasional cough. Denies chest pain, palpitations. Telemetry reporting sinus rhythm with PVCs. Magnesium 2.1, potassium 3.5. Echo reporting preserved LV function, EF 55-60%, moderate pulmonary hypertension. Anticoagulated on Eliquis. Denies nausea vomiting or diarrhea. 08/27/2020 Maintained on the Covid cocktail .continues on 15 L high flow nasal cannula maintaining O2 sat of 88 to 94%. Conversing without shortness of breath. Occasional nonproductive cough Anticoagulated on Eliquis and aspirin. Telemetry sinus rhythm. Objective - Vital Signs Vital signs: Vital Signs Temp 97.9 F 08/27/20 15:40 Pulse 80 08/27/20 15:40 Resp 20 08/27/20 15:40 BP 144/74 08/27/20 15:40 Pulse Ox 94 L 08/27/20 15:40 Intake & Output 08/26/20 08/27/20 08/27/20 18:59 06:59 18:59 Intake Total 1020 0 Output Total 550 450 200 Balance 470 -450 -200 Weight 100.3 kg Intake: Intake, IV Titration 600 Amount Sodium Chloride 0.9% 1, 600 000 ml @ 75 mls/hr IV . [id number] [facility] Rx#:[id number] Oral 420 0 Output: Urine 550 450 200 Other: Voiding Method Urinal - Exam Gen: Sitting up in bed,NAD, on high flow O2 HEENT: normocephalic, atraumatic. mucus membranes moist Neck: supple, no thyromegaly, no JVD CV: RRR, no murmur, pulses 2+ Lungs: increased respiratory effort, fine bibasilar crackles Abd: soft nontender, non distended, +BS Neuro: alert and oriented x3, no focal deficit Skin: warm and dry - Labs CBC & Chem 7: 08/26/20 06:35 08/26/20 06:35 Labs: Abnormal Lab Results - Last 24 Hours (Table) 08/26/20 08/26/20 08/26/20 Range/Units 06:35 16:41 19:53 POC Glucose (mg/dL) 198 H 202 H (75-99) mg/dL Hemoglobin A1c 7.3 H (4.0-6.0) % 08/27/20 08/27/20 Range/Units 06:04 11:39 POC Glucose (mg/dL) 172 H 156 H (75-99) mg/dL Hemoglobin A1c (4.0-6.0) % Assessment and Plan Assessment: Acute hypoxic respiratory failure secondary to Covid Pneumonia. Paroxysmal Atrial fibrillation with RVR, new onset, secondary to the above, currently sinus Acute renal failure, improving Transaminitis, improving Lactic acidosis, resolved CAD with history of PA, stenting of LAD Moderate pulmonary hypertension Elevated troponins, secondary to Covid and JOSÉ MIGUEL as per cardiology. Chronic CHF, diastolic dysfunction Hypertension Hyperlipidemia Former nicotine dependence Gait dysfunction, osteoarthritis, uses walker Plan: Continue on current medication regime ,monitoring and symptomatic treatment. Continue on Covid cocktail. Anticoagulated on Eliquis and aspirin. Prognosis guarded given multiple complex medical issues. The impression and plan of care has been dictated as directed. : I performed a history and examination of this patient, discussed the same with the dictator. I agree with the dictator's note ,documented as a scribe. Any additional findings or plans will be noted.
[2020-08-27 16:58] LABS: Glucose,Whole Blood 169 mg/dL (75-99)
[2020-08-27] MEDS: PANTOPRAZOLE 40 MG/10 ML VIAL IVP SCH (17:31)
[2020-08-27 20:24] LABS: Glucose,Whole Blood 197 mg/dL (75-99)
[2020-08-27] MEDS: QUEtiapine 25 MG TAB PO SCH (21:20)
[2020-08-27] MEDS ORDERED: QUEtiapine 25 MG TAB PO STA (22:09)
[2020-08-28] MEDS: MORPHINE SULFATE 4 MG/ML SYRINGE IV PRN ×4 (00:56→21:10)
[2020-08-28] MEDS: SODIUM CHLORIDE 0.9% 1,000 ML IV SCH ×2 (03:51→19:28)
[2020-08-28 06:12] LABS: Glucose,Whole Blood 239 mg/dL (75-99)
[2020-08-28] MEDS: INSULIN ASPART (NovoLOG) 100 UNIT/ML VIAL SQ SCH ×4 (06:22→20:59)
--- NOTE | 2020-08-28 07:49 | XR ---
EXAMINATION TYPE: XR chest 1V portable DATE OF EXAM: 08/28/2020 CLINICAL HISTORY: Difficulty breathing progress study. TECHNIQUE: Single AP portable upright view of the chest is obtained. COMPARISON: Chest x-ray from 2 a hand 3 days earlier FINDINGS: Cardiac silhouette size stable and upper limits of normal. Reticular nodular increased opa cities in bilateral mid lungs and left basilar region redemonstrated on background chronic parenchyma l changes. Degenerative changes left glenohumeral joint. IMPRESSION: Chronic changes with persistent bilateral mid to lower lung reticulonodular opacities con sistent with covid-19 infection. No significant change from most recent prior x-ray.
[2020-08-28] MEDS: ALBUTEROL HFA INHALER INHALATION SCH ×3 (10:03→20:27)
--- NOTE | 2020-08-28 10:44 | P.PN ---
Subjective Progress Note Date: 08/28/20 Being seen by pulmonary because of COVID 19 related infection/pneumonia. The patient is known to have CAD hypertension and hyperlipidemia. He started having symptoms of decreased appetite and chills and fever approximately 8 days ago. He was also found to have a new onset atrial fibrillation by cardiology and he came into the emergency having significant shortness of breath. He was started on Cardizem drip at 5 mg an hour for rate control. Meanwhile, his chest x-ray showed patchy bilateral pulmonary infiltrates mainly involving the lower lobes bilaterally consistent with community related pneumonia. The patient also had blood work that showing a normal white cell count, platelet refuses 110, d-dimer is at 0.9, creatinine is at 1.3, lactic acid level was initiated 11 dropped down to 2.9, LDH is 25-0 and the CRP is at 58. Troponin was 0.226 at a time of admission. Currently the patient is on 15 L of oxygen by nasal cannula with a pulse ox of 91%. The patient is hemodynamically stable at this point in time. The patient is on Eliquis 2.5 mg by mouth twice a day. He also thought to be started on Decadron this milligrams IV every 24 hours. He did receive his first dose of Decadron in the emergency department. Echocardiogram showing a normal ejection fraction of 50-55%. He is known to have CAD and previous cardiac catheterization from 2018 showed occluded mid RCA, intermittent disease in the circumflex, patent stent in the LAD. 08/26/2020 the patient remains on 15 L of oxygen by nasal cannula. With exertion, he gets short of breath. At rest he is doing well. He is still in a sinus rhythm. He remains on steroids regarding his Covid associated pneumonia. No angina. No palpitations. No syncope. No fever. No chills. No nausea vomiting or diarrhea. The patient's cardiac rhythm is back to sinus. He is not having any cardiac arrhythmias. No fibrillation for now. No chest pain. No nausea. No vomiting. The patient is on long-term anticoagulation with Eliquis 2.5 mg by mouth twice a day. Echocardiogram was within normal limits. 08/27/2020, the patient remains on 15 L of oxygen by nasal cannula. No significant improvement or worsening his condition. He is in sinus rhythm and remains on 50 L of oxygen by nasal cannula. His last chest x-ray was from 08/26/2020 and it was showing bilateral pulmonary infiltrates consistent with COVID-19 related pneumonia. No new labs are available from today. The LDH from yesterday was 2-3 to in the CRP level was 43.7. He is also on Eliquis 2.5 mg by mouth twice a day. He is short of breath. On and off his cough . No major improvement. Upon our bedside evaluation, his pulse ox was noted to be at around 81%. A full face mask was also added as the patient is currently mouth breathing. No tachypnea. Able to speak up sentences. 08/28/2020, condition has been worse and the patient is currently on BiPAP at a pressure of 12/6 cm of water with an FiO2 of 90%. He is feeling tachypneic and short of breath even while in the BiPAP. His minute ventilation is around 19 L. He is able to generate a tidal volume of 730 with a respiratory rate of 27. He is awake, labored breathing and one on the BiPAP. His follow-up chest x-ray from today showing bilateral pulmonary infiltrates worse on the right. In comparison, there has been no major interval change. Nevertheless, the patient's oxygenation has been getting worse. Note that he was on 15 L of oxygen earlier. His labs are still pending from today. His sugars to 39. In terms of treatment, he is on Decadron 6 mg and he is on long-term atrial fibrillation with Eliquis 2.5 mg twice a day. Objective - Vital Signs Vital signs: Vital Signs Temp 98.1 F 08/28/20 03:52 Pulse 103 H 08/28/20 08:00 Resp 25 H 08/28/20 08:00 BP 142/83 08/28/20 08:00 Pulse Ox 90 L 08/28/20 08:00 Intake & Output 08/27/20 08/28/20 08/28/20 18:59 06:59 18:59 Intake Total 120 118 Output Total 200 600 Balance -80 -600 118 Weight 97 kg Intake: Oral 120 118 Output: Urine 200 600 Other: Voiding Method Indwelling Catheter - Exam CONSTITUTIONAL: No apparent distress. Currently on BiPAP therapy at 12/8 cm of water with an FiO2 of 90 Head exam was generally normal. There was no scleral icterus or corneal arcus. Mucous membranes were moist. HEENT: Head is normocephalic. Pupils are equal, round. Sclerae anicteric. Mucous membranes of the mouth are moist. No JVD. No carotid bruit. CHEST EXAMINATION: Lungs are diminished in the bilateral bases to auscultation. No chest wall tenderness is noted on palpation or with deep breathing. The patient has crackles in lung bases bilaterally. HEART EXAMINATION: Heart sounds are distant.Cardiac exam revealed the PMI to be normally situated and sized. The rhythm was regular and no extrasystoles were noted during several minutes of auscultation. The first and second heart sounds were normal and physiologic splitting of the second heart sound was noted. There were no murmurs, rubs, clicks, or gallops. ABDOMEN: Soft, nontender. Positive bowel sounds. EXTREMITIES: 2+ peripheral pulses, no lower extremity edema and no calf tenderness. SKIN: intact NEUROLOGIC EXAMINATION: Patient is awake, alert and oriented x3. - Labs CBC & Chem 7: 08/26/20 06:35 08/26/20 06:35 Labs: Abnormal Lab Results - Last 24 Hours (Table) 08/27/20 08/27/20 08/27/20 Range/Units 11:39 16:45 20:23 POC Glucose (mg/dL) 156 H 169 H 197 H (75-99) mg/dL 08/28/20 Range/Units 06:09 POC Glucose (mg/dL) 239 H (75-99) mg/dL Assessment and Plan Plan: 1 acute bilateral COVID 19 related pneumonia. Patient's symptoms started approximately 8 days ago. The patient is presenting with worsening shortness of breath at atrial fibrillation with rapid ventricular response. His condition is progressively declining. He was on 15 L yesterday and he was kept on Decadron he was given a dose of Tocilizumab and he has progressed and currently is on a BiPAP at a pressure of 12/8 with an FiO2 of 90%. His breathing is labored. He shortness of breath. Chest x-ray findings are showing stable bilateral pulmonary infiltrates. She is on long-term anticoagulation with Eliquis. He is a DNR/DNI CODE STATUS. 2 acute hypoxic respiratory failure secondary to above 3 new-onset atrial fibrillation with RVR, current rhythm is sinus and the patient was taken off Cardizem drip and currently the patient is on Eliquis 4 acute lactic acidosis, improved 5 troponin leak, secondary to above, rule out colostomy 6 coronary artery disease with previous coronary stenting of the LAD 7 hypertension 8 hyperlipidemia 9 severe osteoarthritis and limited mobility and gait and the patient walks around with the help of a walker Plan Keep BiPAP therapy for now at the same setting Not a candidate for Remdesivir The patient will be given Decadron 6 mg IV every 24 hours Tocilizumab due to persistent hypoxemia and worsening in his oxygenation was given a dose of 800 mg IV Monitor the inflammatory markers Add the multivitamins Eliquis 2.5 mg by mouth twice a day regarding his atrial fibrillation current cardiac rhythm is sinus Utilize morphine 2 mg every 4-6 hours on a when necessary basis for breathlessness and anxiety Very poor prognosis DNR/DNI CODE STATUS We'll continue to follow
[2020-08-28 11:50] LABS: Glucose,Whole Blood 155 mg/dL (75-99)
[2020-08-28] MEDS: METOPROLOL TARTRATE 50 MG TAB PO SCH ×2 (12:24→20:58)
[2020-08-28] MEDS: ASPIRIN 81 MG PO SCH (12:24)
[2020-08-28] MEDS: PANTOPRAZOLE 40 MG/10 ML VIAL IVP SCH (12:24)
[2020-08-28] MEDS: APIXABAN 2.5 MG TABLET PO SCH ×2 (12:24→20:58)
[2020-08-28 12:38] LABS: Basophils # (A) 0.1 k/uL (0-0.2); Basophils % (A) 1 %; Eosinophils % (A) 0 %; HGB 15.8 gm/dL (13.0-17.5); Lymphocytes # (A) 0.4 k/uL (1.0-4.8); Lymphocytes % (A) 5 %; MCH 27.4 pg (25.0-35.0); MCHC 33.5 g/dL (31.0-37.0); MCV 81.6 fL (80.0-100.0); Mean Platelet Volume 9.7; Monocytes # (A) 0.4 k/uL (0-1.0); Monocytes % (A) 5 %; Neutrophils # (A) 6.8 k/uL (1.3-7.7); Neutrophils % (A) 87 %; Platelet Count 151 k/uL (150-450); RBC 5.76 m/uL (4.30-5.90); RDW 15.1 % (11.5-15.5); WBC 7.8 k/uL (3.8-10.6)
[2020-08-28 12:45] LABS: African American GFR (CKD) >90 (>60 ml/min/1.73 sqM); Anion Gap 8 mmol/L; Blood Urea Nitrogen 20 mg/dL (9-20); Calcium 8.4 mg/dL (8.4-10.2); Carbon Dioxide 28 mmol/L (22-30); Chloride 103 mmol/L (98-107); Glucose 157 mg/dL (74-99); Non-African American GFR(CKD) >90 (>60 ml/min/1.73 sqM); Potassium 3.8 mmol/L (3.5-5.1); Sodium 139 mmol/L (137-145)
[2020-08-28 13:12] LABS: C Reactive Protein 3.1 mg/dL (<1.0)
[2020-08-28 16:52] LABS: Glucose,Whole Blood 168 mg/dL (75-99)
[2020-08-28] MEDS: dexAMETHasone 2 MG TAB PO SCH (19:34)
[2020-08-28 19:56] LABS: Glucose,Whole Blood 141 mg/dL (75-99)
[2020-08-28] MEDS: DEXAMETHASONE SOD PHOSPHATE 10 MG/ML 1 ML VIAL IV SCH (20:58)
[2020-08-28] MEDS: QUEtiapine 25 MG TAB PO SCH (20:58)
[2020-08-29] MEDS: MORPHINE SULFATE 4 MG/ML SYRINGE IV PRN ×7 (01:14→20:30)
[2020-08-29] MEDS ORDERED: LORazepam 2 MG/ML INJ IV PRN (03:37)
[2020-08-29 06:17] LABS: Glucose,Whole Blood 186 mg/dL (75-99)
[2020-08-29] MEDS: SODIUM CHLORIDE 0.9% 1,000 ML IV SCH ×3 (06:28→19:57)
[2020-08-29] MEDS: INSULIN ASPART (NovoLOG) 100 UNIT/ML VIAL SQ SCH ×4 (06:28→21:40)
[2020-08-29] MEDS: ALBUTEROL HFA INHALER INHALATION SCH ×3 (07:40→19:19)
[2020-08-29 09:42] LABS: C Reactive Protein 1.6 mg/dL (<1.0); Calcium 9.1 mg/dL (8.4-10.2); Potassium 4.3 mmol/L (3.5-5.1)
--- NOTE | 2020-08-29 10:34 | P.PN ---
Subjective Progress Note Date: 08/29/20 Being seen by pulmonary because of COVID 19 related infection/pneumonia. The patient is known to have CAD hypertension and hyperlipidemia. He started having symptoms of decreased appetite and chills and fever approximately 8 days ago. He was also found to have a new onset atrial fibrillation by cardiology and he came into the emergency having significant shortness of breath. He was started on Cardizem drip at 5 mg an hour for rate control. Meanwhile, his chest x-ray showed patchy bilateral pulmonary infiltrates mainly involving the lower lobes bilaterally consistent with community related pneumonia. The patient also had blood work that showing a normal white cell count, platelet refuses 110, d-dimer is at 0.9, creatinine is at 1.3, lactic acid level was initiated 11 dropped down to 2.9, LDH is 25-0 and the CRP is at 58. Troponin was 0.226 at a time of admission. Currently the patient is on 15 L of oxygen by nasal cannula with a pulse ox of 91%. The patient is hemodynamically stable at this point in time. The patient is on Eliquis 2.5 mg by mouth twice a day. He also thought to be started on Decadron this milligrams IV every 24 hours. He did receive his first dose of Decadron in the emergency department. Echocardiogram showing a normal ejection fraction of 50-55%. He is known to have CAD and previous cardiac catheterization from 2018 showed occluded mid RCA, intermittent disease in the circumflex, patent stent in the LAD. 08/26/2020 the patient remains on 15 L of oxygen by nasal cannula. With exertion, he gets short of breath. At rest he is doing well. He is still in a sinus rhythm. He remains on steroids regarding his Covid associated pneumonia. No angina. No palpitations. No syncope. No fever. No chills. No nausea vomiting or diarrhea. The patient's cardiac rhythm is back to sinus. He is not having any cardiac arrhythmias. No fibrillation for now. No chest pain. No nausea. No vomiting. The patient is on long-term anticoagulation with Eliquis 2.5 mg by mouth twice a day. Echocardiogram was within normal limits. 08/27/2020, the patient remains on 15 L of oxygen by nasal cannula. No significant improvement or worsening his condition. He is in sinus rhythm and remains on 50 L of oxygen by nasal cannula. His last chest x-ray was from 08/26/2020 and it was showing bilateral pulmonary infiltrates consistent with COVID-19 related pneumonia. No new labs are available from today. The LDH from yesterday was 2-3 to in the CRP level was 43.7. He is also on Eliquis 2.5 mg by mouth twice a day. He is short of breath. On and off his cough . No major improvement. Upon our bedside evaluation, his pulse ox was noted to be at around 81%. A full face mask was also added as the patient is currently mouth breathing. No tachypnea. Able to speak up sentences. 08/28/2020, condition has been worse and the patient is currently on BiPAP at a pressure of 12/6 cm of water with an FiO2 of 90%. He is feeling tachypneic and short of breath even while in the BiPAP. His minute ventilation is around 19 L. He is able to generate a tidal volume of 730 with a respiratory rate of 27. He is awake, labored breathing and one on the BiPAP. His follow-up chest x-ray from today showing bilateral pulmonary infiltrates worse on the right. In comparison, there has been no major interval change. Nevertheless, the patient's oxygenation has been getting worse. Note that he was on 15 L of oxygen earlier. His labs are still pending from today. His sugars to 39. In terms of treatment, he is on Decadron 6 mg and he is on long-term atrial fibrillation with Eliquis 2.5 mg twice a day. 08/29/2020, the patient is being seen for a follow-up. He was seen in evaluation yesterday the patient was getting worse with worsening oxygenation an d overall respiratory status. He was placed on BiPAP at a pressure of 12/8 with an FiO2 of 90%. On today's evaluation, the patient remains on BiPAP therapy and level of pressure and FiO2 is currently at 100%. His current pulse ox is ranging between 86-90%. He is sleeping on his right lateral side. He is having frequent coughing spells. Obviously his breathing is labored and the patient is quite uncomfortable and he remains on Decadron. In terms of treatment, his inflammatory markers showed LDH of 3749 and CRP of 1.6. LDH is significantly elevated. The patient also had elevation in the D dimers. In addition to Decadron, we ordered Tocilizumab was given to him on 08/27/2020. Yesterday's chest x-ray was obviously will showing diffuse bilateral pulmonary infiltrates and no chest x-rays available from today. As stated, the patient is having labored breathing. He remains on Eliquis 2.5 mg by mouth twice a day. He has a high minute ventilation in the order of 30 L per minute. Receiving Ativan 0.5 every 4 hours in addition to morphine 4 mg every 4 hours IV. This is controllin g his agitation, otherwise, the patient will be pulling on his mask and on his tubing. Objective - Vital Signs Vital signs: Vital Signs Temp 97.5 F L 08/29/20 03:47 Pulse 110 H 08/29/20 03:47 Resp 19 08/29/20 03:47 BP 125/82 08/29/20 03:47 Pulse Ox 93 L 08/29/20 03:47 Intake & Output 08/28/20 08/29/20 08/29/20 18:59 06:59 18:59 Intake Total 776 Output Total 600 300 Balance 176 -300 Weight 97 kg Intake: Oral 776 Output: Urine 600 300 Other: Voiding Method Indwelling Catheter Indwelling Catheter - Exam CONSTITUTIONAL: No apparent distress. Currently on BiPAP therapy at 12/8 cm of water with an FiO2 of 100 his breathing is extremely labored and the patient is having difficulty tolerating the BiPAP unless he gets sedated. Head exam was generally normal. There was no scleral icterus or corneal arcus. Mucous membranes were moist. HEENT: Head is normocephalic. Pupils are equal, round. Sclerae anicteric. Mucous membranes of the mouth are moist. No JVD. No carotid bruit. CHEST EXAMINATION: Lungs are diminished in the bilateral bases to auscultation. No chest wall tenderness is noted on palpation or with deep breathing. The patient has crackles in lung bases bilaterally. HEART EXAMINATION: Heart sounds are distant.Cardiac exam revealed the PMI to be normally situated and sized. The rhythm was regular and no extrasystoles were noted during several minutes of auscultation. The first and second heart sounds were normal and physiologic splitting of the second heart sound was noted. There were no murmurs, rubs, clicks, or gallops. ABDOMEN: Soft, nontender. Positive bowel sounds. EXTREMITIES: 2+ peripheral pulses, no lower extremity edema and no calf tenderness. SKIN: intact NEUROLOGIC EXAMINATION: Patient is awake, alert and oriented x3. The patient is very anxious. He is worked up. Is under the effect of Ativan and morphine. He is having difficulties in tolerating the BiPAP mask unless he is sedated. - Labs CBC & Chem 7: 08/28/20 11:48 08/29/20 08:25 Labs: Abnormal Lab Results - Last 24 Hours (Table) 08/28/20 08/28/20 08/28/20 Range/Units 11:48 11:48 11:48 Lymphocytes # 0.4 L (1.0-4.8) k/uL D-Dimer 16.70 H (<0.60) mg/L FEU BUN (9-20) mg/dL Creatinine 0.62 L (0.66-1.25) mg/dL Glucose 157 H (74-99) mg/dL POC Glucose (mg/dL) (75-99) mg/dL Lactate Dehydrogenase (313-618) U/L C-Reactive Protein (<1.0) mg/dL 08/28/20 08/28/20 08/28/20 Range/Units 11:48 11:48 16:50 Lymphocytes # (1.0-4.8) k/uL D-Dimer (<0.60) mg/L FEU BUN (9-20) mg/dL Creatinine (0.66-1.25) mg/dL Glucose (74-99) mg/dL POC Glucose (mg/dL) 155 H 168 H (75-99) mg/dL Lactate Dehydrogenase 2967 H (313-618) U/L C-Reactive Protein 3.1 H (<1.0) mg/dL 08/28/20 08/29/20 08/29/20 Range/Units 19:52 06:15 08:25 Lymphocytes # (1.0-4.8) k/uL D-Dimer (<0.60) mg/L FEU BUN 31 H (9-20) mg/dL Creatinine (0.66-1.25) mg/dL Glucose 138 H (74-99) mg/dL POC Glucose (mg/dL) 141 H 186 H (75-99) mg/dL Lactate Dehydrogenase 3749 H (313-618) U/L C-Reactive Protein 1.6 H (<1.0) mg/dL Assessment and Plan Plan: 1 acute bilateral COVID 19 related pneumonia. Patient's symptoms started approximately 8 days ago. The patient is presenting with worsening shortness of breath at atrial fibrillation with rapid ventricular response. His condition is progressively declining. He was on 15 L yesterday and he was kept on Decadron he was given a dose of Tocilizumab and he has progressed and currently is on a BiPAP at a pressure of 12/8 with an FiO2 of 90%. The patient's condition has somewhat progressed since yesterday. He is having more difficulties in tolerating his BiPAP mask and is quite restless and agitated and the patient is on a combination of Ativan and morphine on a when necessary basis to control his agitation make him synchronous with the BiPAP treatment. When it ventilation is high. He is tachypneic. Breathing is labored. He is a DNR/DNI CODE STATUS. I was taken to the intensive care unit and start him on some Precedex to help him with his ongoing treatment with BiPAP. He obviously carries a poor prognosis. Inflammatory markers are elevated. Remains on Decadron. 2 acute hypoxic respiratory failure secondary to above 3 new-onset atrial fibrillation with RVR, current rhythm is sinus and the patien t was taken off Cardizem drip and currently the patient is on Eliquis 4 acute lactic acidosis, improved 5 troponin leak, secondary to above, rule out colostomy 6 coronary artery disease with previous coronary stenting of the LAD 7 hypertension 8 hyperlipidemia 9 severe osteoarthritis and limited mobility and gait and the patient walks around with the help of a walker Plan Keep BiPAP therapy for now at the same setting Not a candidate for Remdesivir The patient will be given Decadron 6 mg IV every 24 hours Tocilizumab due to persistent hypoxemia and worsening in his oxygenation was given a dose of 800 mg IV Monitor the inflammatory markers Continue Ativan Continue morphine Transfer this patient to the intensive care unit for Precedex titrate the dose for breathing and agitation Eliquis 2.5 mg by mouth twice a day regarding his atrial fibrillation current cardiac rhythm remains sinus Transferred to the ICU Very poor prognosis DNR/DNI CODE STATUS Family has been contacted regarding his for status. Repeat another chest x-ray in the ICU. We'll continue to follow
[2020-08-29] MEDS: APIXABAN 2.5 MG TABLET PO SCH ×2 (10:44→21:12)
[2020-08-29] MEDS: DEXAMETHASONE SOD PHOSPHATE 10 MG/ML 1 ML VIAL IV SCH ×2 (10:44→19:57)
[2020-08-29] MEDS: PANTOPRAZOLE 40 MG/10 ML VIAL IVP SCH (10:44)
[2020-08-29] MEDS: ASPIRIN 81 MG PO SCH (10:44)
[2020-08-29] MEDS: METOPROLOL TARTRATE 50 MG TAB PO SCH ×2 (10:44→21:12)
[2020-08-29 11:56] LABS: Glucose,Whole Blood 158 mg/dL (75-99)
[2020-08-29] MEDS ORDERED: SODIUM CHLORIDE 0.9% 1,000 ML IV ONE ×2 (15:00→16:30)
[2020-08-29 17:16] LABS: Glucose,Whole Blood 178 mg/dL (75-99)
[2020-08-29] MEDS: DEXMEDETOMIDINE/0.9% NACL(PMX) 400 MCG in EMPTY BAG 1 BAG IV SCH (20:52)
[2020-08-29] MEDS: QUEtiapine 25 MG TAB PO SCH (21:12)
[2020-08-29 21:32] LABS: Glucose,Whole Blood 147 mg/dL (75-99)
--- NOTE | 2020-08-30 00:36 | P.PN ---
Subjective Progress Note Date: 08/28/20 Principal diagnosis: Acute hypoxic respiratory failure secondary to COVID-19 pneumonia Christoph Olvera is an 84 yo M with PMH of CAD s/p stenting of LAD, HTN and HLD who presented to the ED with shortness of breath. Patient states 8 days ago started having symptoms of decreased appetite, chills, fever. Over the past week he has been feeling more short of breath, increased abdominal pain. On presentation he was found to be in atrial fibrillation with RVR rate of 190, hypoxic requiring high flow O2. COVID PCR positive. Patient started on cardizem drip at 5mg/hr and lovenox. Laboratory data reviewed, D-dimer 0.91, Sodium 136, K 3.6, Cr 1.38, BUN 27, Lactate 11.1->2.9, AST 203, ALT 65, elevated LDH, elevated CRP. He denies tobacco or alcohol use. 08/26/2020 maintained on 15 L high flow with O2 sats in the high 80s to low 90s. Chest x-ray reporting improving bibasilar infiltrates. Continues on Decadron. Breathing improving, reporting exertional shortness of breath. Reports occasional cough. Denies chest pain, palpitations. Telemetry reporting sinus rhythm with PVCs. Magnesium 2.1, potassium 3.5. Echo reporting preserved LV function, EF 55-60%, moderate pulmonary hypertension. Anticoagulated on Eliquis. Denies nausea vomiting or diarrhea. 08/27/2020 Maintained on the Covid cocktail .continues on 15 L high flow nasal cannula maintaining O2 sat of 88 to 94%. Conversing without shortness of breath. Occasional nonproductive cough Anticoagulated on Eliquis and aspirin. Telemetry sinus rhythm. 08/28/2020 Patient is currently in the telemetry unit. 100% nonrebreather and BiPAP intermittently. Not able to tolerate BiPAP very well. Chest x-ray showed chronic changes with persistent bilateral mid to lower lung reticulonodular opacities consistent with COVID-19 infection. No significant change from most recent prior study Laboratory data showed WBC 7.8 hemoglobin 15.8 and platelets 151 D-dimer 16.7 and LDH 2967 and CRP 3.1 Patient is being continued dexamethasone IV twice daily and long-term anticoagulation with Eliquis due to atrial fibrillation. Pulmonary and cardiology on board. Current medications reviewed. Objective - Vital Signs Vital signs: Vital Signs Temp 98.1 F 08/28/20 03:52 Pulse 102 H 08/28/20 12:00 Resp 18 08/28/20 12:00 BP 153/96 08/28/20 12:00 Pulse Ox 93 L 08/28/20 12:00 Intake & Output 08/27/20 08/28/20 08/28/20 18:59 06:59 18:59 Intake Total 120 236 Output Total 200 600 300 Balance -80 -600 -64 Weight 97 kg Intake: Oral 120 236 Output: Urine 200 600 300 Other: Voiding Method Indwelling Catheter - Exam PHYSICAL EXAMINATION: Patient is lying in the bed comfortably, mild distress, awake alert and orie nted.. HEENT: Normocephalic. Neck is supple. Pupils reactive. Nostrils clear. Oral cavity is moist. Ears reveal no drainage. Neck reveals no JVD, carotid bruits, or thyromegaly. CHEST EXAMINATION: Trachea is central. Symmetrical expansion. Increased inspiratory effort and fine crackles present.. CARDIAC: Normal S1, S2 with no gallops. No murmurs ABDOMEN: Soft. Bowel sounds normal. No organomegaly. No abdominal bruits. Extremities: reveal no edema. No clubbing or cyanosis Neurologically awake, alert, oriented x3 with well-coordinated movements. No focal deficits noted Skin: No rash or skin lesions. Psychiatric: Coperative. Musculoskeletal: No joint swelling or deformity. Normal range of motion. - Labs CBC & Chem 7: 08/28/20 11:48 08/29/20 08:25 Labs: Abnormal Lab Results - Last 24 Hours (Table) 08/27/20 08/27/20 08/28/20 Range/Units 16:45 20:23 06:09 Lymphocytes # (1.0-4.8) k/uL D-Dimer (<0.60) mg/L FEU Creatinine (0.66-1.25) mg/dL Glucose (74-99) mg/dL POC Glucose (mg/dL) 169 H 197 H 239 H (75-99) mg/dL Lactate Dehydrogenase (313-618) U/L C-Reactive Protein (<1.0) mg/dL 08/28/20 08/28/20 08/28/20 Range/Units 11:48 11:48 11:48 Lymphocytes # 0.4 L (1.0-4.8) k/uL D-Dimer 16.70 H (<0.60) mg/L FEU Creatinine 0.62 L (0.66-1.25) mg/dL Glucose 157 H (74-99) mg/dL POC Glucose (mg/dL) (75-99) mg/dL Lactate Dehydrogenase (313-618) U/L C-Reactive Protein (<1.0) mg/dL 08/28/20 08/28/20 Range/Units 11:48 11:48 Lymphocytes # (1.0-4.8) k/uL D-Dimer (<0.60) mg/L FEU Creatinine (0.66-1.25) mg/dL Glucose (74-99) mg/dL POC Glucose (mg/dL) 155 H (75-99) mg/dL Lactate Dehydrogenase 2967 H (313-618) U/L C-Reactive Protein 3.1 H (<1.0) mg/dL Assessment and Plan Assessment: Acute hypoxic respiratory failure secondary to Covid Pneumonia. Paroxysmal Atrial fibrillation with RVR, new onset, secondary to the above, currently sinus. on Eliquis Acute renal failure, improving Transaminitis, improving Lactic acidosis, resolved CAD with history of [place], stenting of LAD Moderate pulmonary hypertension Elevated troponins, secondary to Covid and JOSÉ MIGUEL as per cardiology. Chronic CHF, diastolic dysfunction Hypertension Hyperlipidemia Former nicotine dependence Gait dysfunction, osteoarthritis, uses walker Plan: Continue on current medication regime ,monitoring and symptomatic treatment. Continue on Covid cocktail. Anticoagulated on Eliquis and aspirin. Prognosis guarded given multiple complex medical issues. Time with Patient: Greater than 30
--- NOTE | 2020-08-30 00:39 | P.PN ---
Subjective Progress Note Date: 08/29/20 Principal diagnosis: Acute hypoxic respiratory failure secondary to COVID-19 pneumonia Christoph Olvera is an 84 yo M with PMH of CAD s/p stenting of LAD, HTN and HLD who presented to the ED with shortness of breath. Patient states 8 days ago started having symptoms of decreased appetite, chills, fever. Over the past week he has been feeling more short of breath, increased abdominal pain. On presentation he was found to be in atrial fibrillation with RVR rate of 190, hypoxic requiring high flow O2. COVID PCR positive. Patient started on cardizem drip at 5mg/hr and lovenox. Laboratory data reviewed, D-dimer 0.91, Sodium 136, K 3.6, Cr 1.38, BUN 27, Lactate 11.1->2.9, AST 203, ALT 65, elevated LDH, elevated CRP. He denies tobacco or alcohol use. 08/26/2020 maintained on 15 L high flow with O2 sats in the high 80s to low 90s. Chest x-ray reporting improving bibasilar infiltrates. Continues on Decadron. Breathing improving, reporting exertional shortness of breath. Reports occasional cough. Denies chest pain, palpitations. Telemetry reporting sinus rhythm with PVCs. Magnesium 2.1, potassium 3.5. Echo reporting preserved LV function, EF 55-60%, moderate pulmonary hypertension. Anticoagulated on Eliquis. Denies nausea vomiting or diarrhea. 08/27/2020 Maintained on the Covid cocktail .continues on 15 L high flow nasal cannula maintaining O2 sat of 88 to 94%. Conversing without shortness of breath. Occasional nonproductive cough Anticoagulated on Eliquis and aspirin. Telemetry sinus rhythm. 08/28/2020 Patient is currently in the telemetry unit. 100% nonrebreather and BiPAP intermittently. Not able to tolerate BiPAP very well. Chest x-ray showed chronic changes with persistent bilateral mid to lower lung reticulonodular opacities consistent with COVID-19 infection. No significant change from most recent prior study Laboratory data showed WBC 7.8 hemoglobin 15.8 and platelets 151 D-dimer 16.7 and LDH 2967 and CRP 3.1 Patient is being continued dexamethasone IV twice daily and long-term anticoagulation with Eliquis due to atrial fibrillation. Pulmonary and cardiology on board. 08/29/2020 Patient is currently in the telemetry unit. Has been having worsening oxygen saturation and breathing status is getting worse despite placing BiPAP and he is saturating at 86 to 90%. Patient is agitated and pulling his mask. Patient was seen by pulmonary and recommends transfer to MICU. Patient is being continued Decadron and Eliquis. Otherwise afebrile. Laboratory data showed sodium 141 D-dimer greater than 34 potassium 4.3 chloride 25 BUN 31 and creatinine 0.99 LDH 3749 and CRP 1.6. Current medications reviewed. Active Medications Generic Name Dose Route Start Last Admin Trade Name Freq PRN Reason Stop Dose Admin Acetaminophen 650 mg 08/25/20 06:21 Acetaminophen Tab 325 Mg Tab PO Q6HR PRN Mild Pain or Fever > 100.5 Albuterol Sulfate 2 puff 08/26/20 08:00 08/29/20 19:19 Albuterol Hfa Inhaler INHALATION 2 puff RT-TID ROSALBA Administration Apixaban 2.5 mg 08/25/20 09:00 08/29/20 21:12 Apixaban 2.5 Mg Tablet PO Not Given BID ROSALBA Aspirin 81 mg 08/26/20 09:00 08/29/20 10:44 Aspirin 81 Mg PO 81 mg DAILY ROSALBA Administration Dexamethasone Sodium Phosphate 6 mg 08/28/20 21:00 08/29/20 19:57 Dexamethasone Sod Phosphate 10 Mg/Ml 1 Ml Vial IV 6 mg BID ROSALBA Administration Sodium Chloride 1,000 mls @ 75 mls/hr 08/25/20 09:00 08/29/20 19:57 Saline 0.9% IV 75 mls/hr .[id number] ROSALBA Administration Dexmedetomidine HCl 400 mcg/ 100 mls @ 0 mls/hr 08/29/20 21:00 08/29/20 20:52 IV Solution IV 08/30/20 21:01 0.2 mcg/kg/hr .Q0M ROSALBA 4.85 mls/hr Administration Protocol Titrate Ibuprofen 400 mg 08/25/20 06:21 Ibuprofen 400 Mg Tab PO Q6HR PRN Mild Pain or Fever > 100.5 Insulin Aspart 0 unit 08/25/20 12:30 08/29/20 21:40 Insulin Aspart (Novolog) 100 Unit/Ml Vial SQ 1 unit ACHS ROSALBA Administration Protocol Lorazepam 0.5 mg 08/29/20 03:37 08/29/20 03:42 Lorazepam 2 Mg/Ml Inj IV 0.5 mg Q4HR PRN Administration Anxiety Metoprolol Tartrate 50 mg 08/25/20 09:00 08/29/20 21:12 Metoprolol Tartrate 50 Mg Tab PO Not Given BID [facility] Miscellaneous Information 1 each 08/26/20 13:16 Potassium Replacement Protocol 1 Each Misc MISCELLANE DAILY PRN Per Protocol Protocol Morphine Sulfate 4 mg 08/29/20 10:31 08/29/20 20:30 Morphine Sulfate 4 Mg/Ml Syringe IV 4 mg Q2H PRN Administration Chest Pain Naloxone HCl 0.2 mg 08/25/20 06:21 Naloxone 0.4 Mg/Ml 1 Ml Vial IV Q2M PRN Opioid Reversal Nitroglycerin 0.4 mg 08/25/20 06:21 Nitroglycerin Sl Tabs 0.4 Mg Tab SUBLINGUAL Q5M PRN Chest Pain Ondansetron HCl 4 mg 08/25/20 06:21 Ondansetron 4 Mg/2 Ml Vial IVP Q8HR PRN Nausea And Vomiting Pantoprazole Sodium 40 mg 08/27/20 16:15 08/29/20 10:44 Pantoprazole 40 Mg/10 Ml Vial IVP 40 mg DAILY [facility] Administration Quetiapine Fumarate 25 mg 08/27/20 21:00 08/29/20 21:12 Quetiapine 25 Mg Tab PO Not Given [facility] Objective - Vital Signs Vital signs: Vital Signs Temp 97.7 F 08/29/20 12:00 Pulse 112 H 08/29/20 14:35 Resp 23 08/29/20 14:35 BP 85/67 08/29/20 14:35 Pulse Ox 86 L 08/29/20 14:35 Intake & Output 08/28/20 08/29/20 08/29/20 18:59 06:59 18:59 Intake Total 776 275 Output Total 600 300 45 Balance 176 -300 230 Weight 97 kg Intake: IV 275 Sodium Chloride 0.9% 1, 275 000 ml @ 75 mls/hr IV . [id number] [facility] Rx#:[id number] Oral 776 Output: Urine 600 300 45 Other: Voiding Method Indwelling Catheter Indwelling Catheter Indwelling Catheter - Exam PHYSICAL EXAMINATION: Patient is lying in the bed comfortably, mild distress, awake alert and oriented.. HEENT: Normocephalic. Neck is supple. Pupils reactive. Nostrils clear. Oral cavity is moist. Ears reveal no drainage. Neck reveals no JVD, carotid bruits, or thyromegaly. CHEST EXAMINATION: Trachea is central. Symmetrical expansion. Increased inspiratory effort and fine crackles present.. CARDIAC: Normal S1, S2 with no gallops. No murmurs ABDOMEN: Soft. Bowel sounds normal. No organomegaly. No abdominal bruits. Extremities: reveal no edema. No clubbing or cyanosis Neurologically awake, alert, oriented x3 with well-coordinated movements. No focal deficits noted Skin: No rash or skin lesions. Psychiatric: Coperative. Musculoskeletal: No joint swelling or deformity. Normal range of motion. - Labs CBC & Chem 7: 08/28/20 11:48 08/29/20 08:25 Labs: Abnormal Lab Results - Last 24 Hours (Table) 08/28/20 08/28/20 08/29/20 Range/Units 16:50 19:52 06:15 D-Dimer (<0.60) mg/L FEU BUN (9-20) mg/dL Glucose (74-99) mg/dL POC Glucose (mg/dL) 168 H 141 H 186 H (75-99) mg/dL Lactate Dehydrogenase (313-618) U/L C-Reactive Protein (<1.0) mg/dL 08/29/20 08/29/20 08/29/20 Range/Units 08:25 08:25 11:55 D-Dimer >34.10 H (<0.60) mg/L FEU BUN 31 H (9-20) mg/dL Glucose 138 H (74-99) mg/dL POC Glucose (mg/dL) 158 H (75-99) mg/dL Lactate Dehydrogenase 3749 H (313-618) U/L C-Reactive Protein 1.6 H (<1.0) mg/dL Assessment and Plan Assessment: Acute hypoxic respiratory failure secondary to Covid Pneumonia. Paroxysmal Atrial fibrillation with RVR, new onset, secondary to the above, currently sinus. on Eliquis Acute renal failure, improving Transaminitis, improving Lactic acidosis, resolved CAD with history of [place], stenting of LAD Moderate pulmonary hypertension Elevated troponins, secondary to Covid and JOSÉ MIGUEL as per cardiology. Chronic CHF, diastolic dysfunction Hypertension Hyperlipidemia Former nicotine dependence Gait dysfunction, osteoarthritis, uses walker Plan: Continue on current medication regime ,monitoring and symptomatic treatment. Continue on Covid cocktail. Anticoagulated on Eliquis and aspirin. Prognosis guarded given multiple complex medical issues. Time with Patient: Greater than 30
[2020-08-30] MEDS: MORPHINE SULFATE 4 MG/ML SYRINGE IV PRN ×2 (03:57→06:21)
[2020-08-30] MEDS: DEXMEDETOMIDINE/0.9% NACL(PMX) 400 MCG in EMPTY BAG 1 BAG IV SCH (06:08)
[2020-08-30 07:08] LABS: Glucose,Whole Blood 155 mg/dL (75-99)
[2020-08-30] MEDS: INSULIN ASPART (NovoLOG) 100 UNIT/ML VIAL SQ SCH ×4 (07:10→23:52)
[2020-08-30] MEDS: ASPIRIN 81 MG PO SCH (07:59)
[2020-08-30] MEDS: METOPROLOL TARTRATE 50 MG TAB PO SCH ×2 (07:59→19:39)
[2020-08-30] MEDS: APIXABAN 2.5 MG TABLET PO SCH ×2 (07:59→19:39)
--- NOTE | 2020-08-30 08:01 | XR ---
EXAMINATION TYPE: XR chest 1V portable DATE OF EXAM: 08/30/2020 Comparison: 08/28/2020 Clinical History: 84-year-old male ICU follow-up, assess lungs. Findings: Heart normal size. Hyperinflation. Unchanged 7 mm nodularity projecting at the left upper lobe, possi ble calcified granuloma given suggestion of some calcified lymph nodes in the left hilum. Patchy opac ities in the mid and lower lungs similar to minimally improved. No pleural effusion. Impression: COPD with patchy mid and lower lung infiltrates, similar to minimally improved.
[2020-08-30] MEDS: ALBUTEROL HFA INHALER INHALATION SCH ×3 (08:22→19:19)
[2020-08-30] MEDS ORDERED: SUCCINYLCHOLINE CHLORIDE VIAL 200 MG/10 ML VIAL IV ONE (09:10)
[2020-08-30] MEDS ORDERED: ETOMIDATE 2 MG/ML 10 ML VIAL ONE (09:10)
[2020-08-30] MEDS ORDERED: propofoL 100 ML IV ONE (09:11)
[2020-08-30] MEDS ORDERED: SODIUM CHLORIDE 0.9% 500 ML 500 ML IV ONE (10:00)
[2020-08-30] MEDS ORDERED: NOREPINEPHRINE 4 MG in SODIUM CHLORIDE 0.9% 250 ML IV SCH (10:15)
[2020-08-30] MEDS ORDERED: DEXTROSE 5% IN WATER 100 ML with AMIODARONE 150 MG IV ONE (10:20)
[2020-08-30] MEDS ORDERED: AMIODARONE 360 MG in DEXTROSE 5% IN WATER 200 ML IV ONE ×2 (10:20)
--- NOTE | 2020-08-30 10:34 | P.PN ---
Subjective Progress Note Date: 08/30/20 Principal diagnosis: Acute hypoxic respiratory failure secondary to COVID-19 pneumonia. Being seen by pulmonary because of COVID 19 related infection/pneumonia. The patient is known to have CAD hypertension and hyperlipidemia. He started having symptoms of decreased appetite and chills and fever approximately 8 days ago. He was also found to have a new onset atrial fibrillation by cardiology and he came into the emergency having significant shortness of breath. He was started on Cardizem drip at 5 mg an hour for rate control. Meanwhile, his chest x-ray showed patchy bilateral pulmonary infiltrates mainly involving the lower lobes bilaterally consistent with community related pneumonia. The patient also had blood work that showing a normal white cell count, platelet refuses 110, d-dimer is at 0.9, creatinine is at 1.3, lactic acid level was initiated 11 dropped down to 2.9, LDH is 25-0 and the CRP is at 58. Troponin was 0.226 at a time of admission. Currently the patient is on 15 L of oxygen by nasal cannula with a pulse ox of 91%. The patient is hemodynamically stable at this point in time. The patient is on Eliquis 2.5 mg by mouth twice a day. He also thought to be started on Decadron this milligrams IV every 24 hours. He did receive his first dose of Decadron in the emergency department. Echocardiogram showing a normal ejection fraction of 50-55%. He is known to have CAD and previous cardiac catheterization from 2018 showed occluded mid RCA, intermittent disease in the circumflex, patent stent in the LAD. 08/26/2020 the patient remains on 15 L of oxygen by nasal cannula. With exertion, he gets short of breath. At rest he is doing well. He is still in a sinus rhythm. He remains on steroids regarding his Covid associated pneumonia. No angina. No palpitations. No syncope. No fever. No chills. No nausea vomiting or diarrhea. The patient's cardiac rhythm is back to sinus. He is not having any cardiac arrhythmias. No fibrillation for now. No chest pain. No nausea. No vomiting. The patient is on long-term anticoagulation with Eliquis 2.5 mg by mouth twice a day. Echocardiogram was within normal limits. 08/27/2020, the patient remains on 15 L of oxygen by nasal cannula. No significant improvement or worsening his condition. He is in sinus rhythm and remains on 50 L of oxygen by nasal cannula. His last chest x-ray was from 08/26/2020 and it was showing bilateral pulmonary infiltrates consistent with COVID-19 related pneumonia. No new labs are available from today. The LDH from yesterday was 2-3 to in the CRP level was 43.7. He is also on Eliquis 2.5 mg by mouth twice a day. He is short of breath. On and off his cough . No major improvement. Upon our bedside evaluation, his pulse ox was noted to be at around 81%. A full face mask was also added as the patient is currently mouth breathing. No tachypnea. Able to speak up sentences. 08/28/2020, condition has been worse and the patient is currently on BiPAP at a pressure of 12/6 cm of water with an FiO2 of 90%. He is feeling tachypneic and short of breath even while in the BiPAP. His minute ventilation is around 19 L. He is able to generate a tidal volume of 730 with a respiratory rate of 27. He is awake, labored breathing and one on the BiPAP. His follow-up chest x-ray from today showing bilateral pulmonary infiltrates worse on the right. In comparison, there has been no major interval change. Nevertheless, the patient's oxygenation has been getting worse. Note that he was on 15 L of oxygen earlier. His labs are still pending from today. His sugars to 39. In terms of treatment, he is on Decadron 6 mg and he is on long-term atrial fibrillation with Eliquis 2.5 mg twice a day. 08/29/2020, the patient is being seen for a follow-up. He was seen in evaluation yesterday the patient was getting worse with worsening oxygenation and overall respiratory status. He was placed on BiPAP at a pressure of 12/8 with an FiO2 of 90%. On today's evaluation, the patient remains on BiPAP therapy and level of pressure and FiO2 is currently at 100%. His current pulse ox is ranging between 86-90%. He is sleeping on his right lateral side. He is having frequent coughing spells. Obviously his breathing is labored and the patient is quite uncomfortable and he remains on Decadron. In terms of treatment, his inflammatory markers showed LDH of 3749 and CRP of 1.6. LDH is significantly elevated. The patient also had elevation in the D dimers. In addition to Decadron, we ordered Tocilizumab was given to him on 08/27/2020. Yesterday's chest x-ray was obviously will showing diffuse bilateral pulmonary infiltrates and no chest x-rays available from today. As stated, the patient is having labored breathing. He remains on Eliquis 2.5 mg by mouth twice a day. He has a high minute ventilation in the order of 30 L per minute. Receiving Ativan 0.5 every 4 hours in addition to morphine 4 mg every 4 hours IV. This is controlling his agitation, otherwise, the patient will be pulling on his mask and on his tubing. Patient was reevaluated on 08/30/2020,, patient seems to be in moderate to severe respiratory distress, he is on BiPAP, he is also on Precedex, does not seem to be doing well, his O2 saturations are low in spite of FiO2 of 100% with IPAP of 14 EPAP of 10. Patient looks extremely lethargic, only wiggles his toes to verbal instructions. Otherwise unable to conduct a conversation. Hence after reviewing his x-ray and reviewing his labs, and evaluating the patient clinically, family was reached by the admitting physician about his CODE STATUS, and family had no problem since patient being intubated. I recommended intubating the patient because he was getting worse in spite of BiPAP. Post in tubation chest x-ray showed adequate placement of the endotracheal tube and he continues to have bilateral bibasilar interstitial infiltrates. D-dimer today was noted to be up to 54.10 electrolytes are normal renal profile is normal LDH is on the rise up to 3749 and C-reactive protein is down to 1.6 his ventilator settings were noted and adjusted further once we have an ABG on the same vent settings right now. Objective - Vital Signs Vital signs: Vital Signs Temp 98.0 F 08/30/20 04:00 Pulse 85 08/30/20 07:00 Resp 16 08/30/20 07:00 BP 105/71 08/30/20 07:00 Pulse Ox 84 L 08/30/20 07:00 Intake & Output 08/29/20 08/30/20 08/30/20 18:59 06:59 18:59 Intake Total 2350 944.943 75 Output Total 185 410 40 Balance 2165 534.943 35 Weight 97 kg Intake: IV 2350 900 75 Sodium Chloride 0.9% 1, 2350 900 75 000 ml @ 75 mls/hr IV . [id number] ROSALBA Rx#:[id number] Intake, IV Titration 44.943 Amount Dexmedetomidine/0.9% NaCl 44.943 (Pmx) 400 mcg In Empty Bag 1 bag @ Titrate IV . Q0M ROSALBA Rx#:[id number] Output: Urine 185 410 40 Other: Voiding Method Indwelling Catheter Indwelling Catheter - Exam Gen.: Revealed a 84-year-old male in moderate severe respiratory distress. On B iPAP, and his O2 saturations are in the 70s. HEENT: Normocephalic. Neck is supple. Pupils reactive. Nostrils clear. Oral cavity is moist. Ears reveal no drainage. Neck reveals no JVD, carotid bruits, or thyromegaly. CHEST EXAMINATION: Trachea is central. Symmetrical expansion. Fine crackles noted at the bases. CARDIAC: Normal S1, S2 with no gallops. No murmurs ABDOMEN: Soft. Bowel sounds normal. No organomegaly. No abdominal bruits. Extremities: reveal no edema. No clubbing or cyanosis Neurologically : Arousable, wiggles toes only upon instructions otherwise could not conduct any conversation with me. According to his nurse, patient has been confused for the last 24 hours. Skin: No rash or skin lesions. Psychiatric: Not assess. Musculoskeletal: No joint swelling or deformity. Normal range of motion. - Labs CBC & Chem 7: 08/28/20 11:48 08/29/20 08:25 Labs: Abnormal Lab Results - Last 24 Hours (Table) 08/29/20 08/29/20 08/29/20 Range/Units 08:25 11:55 17:15 D-Dimer >34.10 H (<0.60) mg/L FEU POC Glucose (mg/dL) 158 H 178 H (75-99) mg/dL 08/29/20 08/30/20 Range/Units 21:30 07:06 D-Dimer (<0.60) mg/L FEU POC Glucose (mg/dL) 147 H 155 H (75-99) mg/dL Assessment and Plan Assessment: Acute hypoxic respiratory failure secondary to Covid Pneumonia. Worsening clinical status requiring intubation and mechanical ventilation. Paroxysmal Atrial fibrillation with RVR, new onset, secondary to the above, currently sinus. on Eliquis Acute renal failure, improving Transaminitis, secondary to COVID-19 infection. Lactic acidosis, resolved CAD with history of [place], stenting of LAD Moderate pulmonary hypertension Troponin leak. Chronic CHF, diastolic dysfunction Hypertension Hyperlipidemia Former nicotine dependence Gait dysfunction, osteoarthritis, uses walker Recommendation: Patient will be intubated and placed on mechanical ventilation. Patient was out of the window for rem Patient received toci Continue Eliquis. Continue to monitor cardiac rhythm. CODE STATUS was changed by his daughter to full code, patient did not have intact mental status today to make a decision regarding his CODE STATUS. Continue nutritional support/enteral feeding. Continue ventilatory support. Continue GI and DVT prophylaxis. Prognosis is extremely poor and guarded. Critical care time is over 30 minutes. We'll arrange for PICC line by interventional radiology Time with Patient: Greater than 30
--- NOTE | 2020-08-30 10:54 | XR ---
EXAMINATION TYPE: XR chest 1V portable DATE OF EXAM: 08/30/2020 Comparison: Earlier today Clinical History: 84-year-old male post intubation Findings: ET tube satisfactory. NG tube courses below the diaphragm. Heart normal size. Hyperinflation. Patchy lower lung opacities unchanged. Redemonstrated calcified lymph nodes left hilum and a calcified granu timothy in the left upper lobe. Impression: Continued bilateral lower lung infiltrates. Satisfactory ET and NG tubes.
[2020-08-30 11:04] LABS: ABG Base Excess -3.8 mmol/L; ABG HCO3 24 mmol/L (21-25); ABG Oxygen Saturation 75.5 % (94-97); ABG PCO2 55 mmHg (35-45); ABG PH 7.24 (7.35-7.45); ABG PO2 53 mmHg (83-108); ABG TCO2 25 mmol/L (19-24)
[2020-08-30 11:35] LABS: Basophils # (A) 0.4 k/uL (0-0.2); Basophils % (A) 2 %; Eosinophils % (A) 0 %; HCT 52.1 % (39.0-53.0); Hypochromasia Slight; Lymphocytes # (A) 1.5 k/uL (1.0-4.8); Lymphocytes % (A) 8 %; MCH 28.1 pg (25.0-35.0); MCHC 32.6 g/dL (31.0-37.0); Mean Platelet Volume 10.3; Monocytes # (A) 0.6 k/uL (0-1.0); Monocytes % (A) 3 %; Neutrophils # (A) 15.1 k/uL (1.3-7.7); Neutrophils % (A) 83 %; Platelet Count 165 k/uL (150-450); RBC 6.06 m/uL (4.30-5.90); RDW 15.9 % (11.5-15.5); WBC 18.3 k/uL (3.8-10.6)
[2020-08-30 11:37] LABS: C Reactive Protein 1.1 mg/dL (<1.0); Potassium 4.3 mmol/L (3.5-5.1); Total Bilirubin 2.1 mg/dL (0.2-1.3); Total Protein 5.7 g/dL (6.3-8.2)
[2020-08-30 11:51] LABS: Glucose,Whole Blood 172 mg/dL (75-99)
[2020-08-30] MEDS: PANTOPRAZOLE 40 MG/10 ML VIAL IVP SCH (11:59)
[2020-08-30] MEDS: DEXAMETHASONE SOD PHOSPHATE 10 MG/ML 1 ML VIAL IV SCH ×2 (11:59→19:39)
[2020-08-30] MEDS: SODIUM CHLORIDE 0.9% 1,000 ML IV SCH ×2 (12:01→22:10)
[2020-08-30 12:22] LABS: D-Dimer >34.10 mg/L FEU (<0.60); INR 2.2 (<1.2); Prothrombin Time 21.7 sec (9.0-12.0)
[2020-08-30] MEDS ORDERED: LIDOCAINE 1% INJ 10MG/ML (20 ML MDV) SQ ONE (14:13)
[2020-08-30 14:26] VITALS: BMI 27.4
--- NOTE | 2020-08-30 14:33 | P.PN ---
Subjective Progress Note Date: 08/30/20 Christoph Olvera is an 84 yo M with PMH of CAD s/p stenting of LAD, HTN and HLD who presented to the ED with shortness of breath. Patient states 8 days ago started having symptoms of decreased appetite, chills, fever. Over the past week he has been feeling more short of breath, increased abdominal pain. On presentation he was found to be in atrial fibrillation with RVR rate of 190, hypoxic requiring high flow O2. COVID PCR positive. Patient started on cardizem drip at 5mg/hr and lovenox. Laboratory data reviewed, D-dimer 0.91, Sodium 136, K 3.6, Cr 1.38, BUN 27, Lactate 11.1->2.9, AST 203, ALT 65, elevated LDH, elevated CRP. He denies tobacco or alcohol use. 08/26/2020 maintained on 15 L high flow with O2 sats in the high 80s to low 90s. Chest x-ray reporting improving bibasilar infiltrates. Continues on Decadron. Breathing improving, reporting exertional shortness of breath. Reports occasional cough. Denies chest pain, palpitations. Telemetry reporting sinus rhythm with PVCs. Magnesium 2.1, potassium 3.5. Echo reporting preserved LV function, EF 55-60%, moderate pulmonary hypertension. Anticoagulated on Eliquis. Denies nausea vomiting or diarrhea. 08/27/2020 Maintained on the Covid cocktail .continues on 15 L high flow nasal cannula maintaining O2 sat of 88 to 94%. Conversing without shortness of breath. Occasional nonproductive cough Anticoagulated on Eliquis and aspirin. Telemetry sinus rhythm. 08/30/2020 respiratory status worsened despite BiPAP and required transfer to the ICU. Respiratory status continues to decline, maintaining O2 sats in the low to mid 80s, despite being on BiPAP and Precedex. Patient is becoming increasingly tired. Chest x-ray reporting COPD with patchy in bed and lower lung infiltrates, minimally improved. Intubation being discussed by pulmonary. Patient's daughter contacted by PCP, Dr. Miguel Rm, addressed CODE STATUS. Patient's daughter stated her dad was delirious and that he needed to be a full code and that he is to be intubated if needed. D-dimer greater than 34.1, LDH 2563, CK 1416, C-reactive protein 1.1. T bili up to 2.1, AST 129, ALT 66, alk phos 131 Objective - Vital Signs Vital signs: Vital Signs Temp 98.0 F 08/30/20 04:00 Pulse 85 08/30/20 07:00 Resp 16 08/30/20 07:00 BP 105/71 08/30/20 07:00 Pulse Ox 84 L 08/30/20 07:00 Intake & Output 08/29/20 08/30/20 08/30/20 18:59 06:59 18:59 Intake Total 2350 944.943 145.872 Output Total 185 410 40 Balance 2165 534.943 105.872 Weight 97 kg Intake: IV 2350 900 75 Sodium Chloride 0.9% 1, 2350 900 75 000 ml @ 75 mls/hr IV . [id number] ROSALBA Rx#:[id number] Intake, IV Titration 44.943 70.872 Amount Dexmedetomidine/0.9% NaCl 44.943 32.374 (Pmx) 400 mcg In Empty Bag 1 bag @ Titrate IV . Q0M ROSALBA Rx#:[id number] Norepinephrine 4 mg In 38.498 Sodium Chloride 0.9% 250 ml @ 0.05 MCG/KG/MIN 18. 479 mls/hr IV .[id number] ROSALBA Rx#:[id number] Output: Urine 185 410 40 Other: Voiding Method Indwelling Catheter Indwelling Catheter - Exam Physical exam Limited, defer to panel monitor, COVID Gen: Sitting up in bed, fatigued, wearing BiPAP. Respiratory effort increased HEENT: normocephalic, atraumatic. CV: RRR, no murmur, pulses 2+ Lungs: increased respiratory effort Skin: warm and dry - Labs CBC & Chem 7: 08/30/20 11:05 08/30/20 11:05 Labs: Abnormal Lab Results - Last 24 Hours (Table) 08/29/20 08/29/20 08/30/20 Range/Units 17:15 21:30 07:06 WBC (3.8-10.6) k/uL RBC (4.30-5.90) m/uL RDW (11.5-15.5) % Neutrophils # (1.3-7.7) k/uL Basophils # (0-0.2) k/uL PT (9.0-12.0) sec INR (<1.2) D-Dimer (<0.60) mg/L FEU ABG pH (7.35-7.45) ABG pCO2 (35-45) mmHg ABG pO2 (83-108) mmHg ABG Total CO2 (19-24) mmol/L ABG O2 Saturation (94-97) % Chloride (98-107) mmol/L BUN (9-20) mg/dL Glucose (74-99) mg/dL POC Glucose (mg/dL) 178 H 147 H 155 H (75-99) mg/dL Total Bilirubin (0.2-1.3) mg/dL AST (17-59) U/L ALT (4-49) U/L Alkaline Phosphatase (38-126) U/L Lactate Dehydrogenase (313-618) U/L Creatine Kinase (55-170) U/L C-Reactive Protein (<1.0) mg/dL Total Protein (6.3-8.2) g/dL Albumin (3.5-5.0) g/dL 08/30/20 08/30/20 08/30/20 Range/Units 11:01 11:05 11:05 WBC 18.3 H (3.8-10.6) k/uL RBC 6.06 H (4.30-5.90) m/uL RDW 15.9 H (11.5-15.5) % Neutrophils # 15.1 H (1.3-7.7) k/uL Basophils # 0.4 H (0-0.2) k/uL PT 21.7 H (9.0-12.0) sec INR 2.2 H (<1.2) D-Dimer >34.10 H (<0.60) mg/L FEU ABG pH 7.24 L (7.35-7.45) ABG pCO2 55 H (35-45) mmHg ABG pO2 53 L* (83-108) mmHg ABG Total CO2 25 H (19-24) mmol/L ABG O2 Saturation 75.5 L (94-97) % Chloride (98-107) mmol/L BUN (9-20) mg/dL Glucose (74-99) mg/dL POC Glucose (mg/dL) (75-99) mg/dL Total Bilirubin (0.2-1.3) mg/dL AST (17-59) U/L ALT (4-49) U/L Alkaline Phosphatase (38-126) U/L Lactate Dehydrogenase (313-618) U/L Creatine Kinase (55-170) U/L C-Reactive Protein (<1.0) mg/dL Total Protein (6.3-8.2) g/dL Albumin (3.5-5.0) g/dL 08/30/20 08/30/20 Range/Units 11:05 11:48 WBC (3.8-10.6) k/uL RBC (4.30-5.90) m/uL RDW (11.5-15.5) % Neutrophils # (1.3-7.7) k/uL Basophils # (0-0.2) k/uL PT (9.0-12.0) sec INR (<1.2) D-Dimer (<0.60) mg/L FEU ABG pH (7.35-7.45) ABG pCO2 (35-45) mmHg ABG pO2 (83-108) mmHg ABG Total CO2 (19-24) mmol/L ABG O2 Saturation (94-97) % Chloride 112 H (98-107) mmol/L BUN 50 H (9-20) mg/dL Glucose 189 H (74-99) mg/dL POC Glucose (mg/dL) 172 H (75-99) mg/dL Total Bilirubin 2.1 H (0.2-1.3) mg/dL AST 129 H (17-59) U/L ALT 66 H (4-49) U/L Alkaline Phosphatase 131 H (38-126) U/L Lactate Dehydrogenase 3563 H (313-618) U/L Creatine Kinase 1416 H* (55-170) U/L C-Reactive Protein 1.1 H (<1.0) mg/dL Total Protein 5.7 L (6.3-8.2) g/dL Albumin 3.0 L (3.5-5.0) g/dL Assessment and Plan Assessment: Acute hypoxic respiratory failure secondary to Covid Pneumonia, worsening on BiPAP. Paroxysmal Atrial fibrillation with RVR, new onset, secondary to the above, currently sinus Acute renal failure, improving Transaminitis, secondary to Covid, improving Lactic acidosis, resolved CAD with history of [place], stenting of LAD Moderate pulmonary hypertension Elevated troponins, secondary to Covid and JOSÉ MIGUEL as per cardiology. Chronic CHF, diastolic dysfunction Hypertension Hyperlipidemia Former nicotine dependence Gait dysfunction, osteoarthritis, uses walker Plan: Continue on current medication regime ,monitoring and symptomatic treatment. Per family/daughter CODE STATUS will be changed to full code, intubated .Continue on Covid cocktail. Anticoagulated on Eliquis and aspirin. Prognosis guarded given multiple complex medical issues. The impression and plan of care has been dictated as directed. : I performed a history and examination of this patient, discussed the same with the dictator. I agree with the dictator's note ,documented as a scribe. Any additional findings or plans will be noted.
[2020-08-30] MEDS: NOREPINEPHRINE 32 MG in SODIUM CHLORIDE 0.9% 218 ML IV SCH (15:05)
--- NOTE | 2020-08-30 15:30 | XR ---
EXAMINATION TYPE: XR chest 1V portable DATE OF EXAM: 08/30/2020 CLINICAL HISTORY: Difficulty breathing progress study after recent intubation. Right-sided PICC line placement. TECHNIQUE: Single AP portable semiupright view of the chest is obtained. COMPARISON: Chest x-ray from earlier today and older studies FINDINGS: New Right-sided PICC line terminates in the SVC. Stable endotracheal and orogastric tubes. Cardiac silhouette size stable and upper limits of normal. Reticular nodular increased opacities in b ilateral mid lungs and left basilar region redemonstrated on background chronic parenchymal changes. Degenerative changes right glenohumeral joint. IMPRESSION: Chronic changes with persistent bilateral mid to lower lung reticulonodular opacities con sistent with covid-19 infection. No significant change from x-ray earlier today except for new right- sided PICC line .
[2020-08-30] MEDS: AMIODARONE 450 MG in DEXTROSE 5% IN WATER 250 ML IV SCH ×2 (17:11)
--- NOTE | 2020-08-30 17:24 | IR ---
EXAMINATION TYPE: IR cvc insert >=5 years DATE OF EXAM: 08/30/2020 COMPARISON: NONE HISTORY: Covid pneumonia, needs long-term intravenous access for therapy FINDINGS: Maximal barrier technique was utilized. Hand hygiene obtained with soap and water and alco hol-based hand rub. The skin overlying the right basilic vein was localized with ultrasound and noted to be compressible and patent by ultrasound. An ultrasound image was obtained and submitted on parker ent's chart. Sterile technique utilized with the ultrasound machine. The skin overlying was prepped a nd draped and Lidocaine used for local anesthesia. A skin destiny was made with a scalpel. Access was gained to the vein under direct ultrasound guidance with a 21-gauge needle and a 0.018 inch wire was advanced. Access site was dilated with a peel-away sheath and the catheter tailored to length. Cath eter advanced centrally and a post procedure chest x-ray verified placement with tip at the superior vena cava. Catheter was fixed to the skin and a sterile dressing placed. Hemostasis achieved and th e catheter was aspirated and flushed with sterile saline. The patient remained in stable condition. IMPRESSION: STATUS POST ULTRASOUND GUIDED PICC LINE PLACEMENT, READY FOR USE. THIS PROCEDURE WAS PER FORMED BY THE UNDERSIGNED.
[2020-08-30 17:46] LABS: Glucose,Whole Blood 187 mg/dL (75-99)
[2020-08-30] MEDS ORDERED: SODIUM CHLORIDE 0.9% 1,000 ML IV ONE (17:55)
[2020-08-30] MEDS: QUEtiapine 25 MG TAB PO SCH (19:39)
[2020-08-30] MEDS: CHLORHEXIDINE GLUCONATE 15 ML CUP MUCOUS MEM SCH (19:39)
--- NOTE | 2020-08-30 23:18 | OP ---
OPERATIVE REPORT OPERATIVE REPORT: Placement of left radial arterial line. PREOPERATIVE DIAGNOSIS: Acute hypoxic respiratory failure, hypotension, and COVID-19 pneumonia. ANESTHESIA USED: None deployed. PROCEDURE DESCRIPTION: The patient was placed in supine position. The left wrist was prepared in a sterile fashion. Drapes were applied. Left radial artery was palpated, cannulated easily. A guidewire was placed. A Cook's catheter was inserted over the guidewire, and the guidewire was removed. Good blood flow, good waveform noted. No complications. Line was secured using 3.0 silk sutures. MMODL / IJN: [id number] /
[2020-08-30 23:48] LABS: Glucose,Whole Blood 195 mg/dL (75-99)
[2020-08-31] MEDS: NOREPINEPHRINE 32 MG in SODIUM CHLORIDE 0.9% 218 ML IV SCH ×2 (01:07→15:26)
[2020-08-31 01:32] LABS: Ferritin 485.7 ng/mL (22.0-322.0)
[2020-08-31 04:57] LABS: ABG Base Excess -5.2 mmol/L; ABG HCO3 24 mmol/L (21-25); ABG Oxygen Saturation 86.6 % (94-97); ABG PO2 64 mmHg (83-108); ABG TCO2 27 mmol/L (19-24); Allen Test Performed? Yes
[2020-08-31 05:00] LABS: ABG PCO2 79 mmHg (35-45)
[2020-08-31 05:26] LABS: Anisocytosis Slight; Basophils # (A) 0.4 k/uL (0-0.2); Basophils % (A) 2 %; Eosinophils % (A) 0 %; HCT 54.8 % (39.0-53.0); HGB 17.8 gm/dL (13.0-17.5); Hypochromasia Marked; Lymphocytes # (A) 0.5 k/uL (1.0-4.8); Lymphocytes % (A) 3 %; MCH 28.9 pg (25.0-35.0); MCHC 32.5 g/dL (31.0-37.0); MCV 88.9 fL (80.0-100.0); Mean Platelet Volume 9.9; Monocytes # (A) 0.7 k/uL (0-1.0); Monocytes % (A) 4 %; Neutrophils # (A) 17.5 k/uL (1.3-7.7); Neutrophils % (A) 88 %; Platelet Count 147 k/uL (150-450); Poikilocytosis Slight; RBC 6.16 m/uL (4.30-5.90); RDW 16.1 % (11.5-15.5); WBC 19.8 k/uL (3.8-10.6)
[2020-08-31 06:16] LABS: Glucose,Whole Blood 121 mg/dL (75-99)
[2020-08-31] MEDS: INSULIN ASPART (NovoLOG) 100 UNIT/ML VIAL SQ SCH ×2 (06:24→13:06)
[2020-08-31] MEDS: ALBUTEROL HFA INHALER INHALATION SCH ×2 (07:30→11:29)
--- NOTE | 2020-08-31 07:36 | XR ---
EXAMINATION TYPE: XR chest 1V portable DATE OF EXAM: 08/31/2020 Comparison: 08/30/2020 Clinical History: 84-year-old male ICU follow-up, assess lungs. Findings: ET and NG tubes satisfactory. Heart normal size. Hyperinflation. Calcified left hilar lymph nodes and a calcified granuloma left upper lobe redemonstrated. Interstitial changes mid and lower lungs appea rs slightly worsened. No pleural effusion. Right PICC tip mid SVC level. Impression: COPD with interval slight worsening in interstitial infiltrates in the mid and lower lungs.
[2020-08-31] MEDS: PANTOPRAZOLE 40 MG/10 ML VIAL IVP SCH (07:51)
[2020-08-31] MEDS: CHLORHEXIDINE GLUCONATE 15 ML CUP MUCOUS MEM SCH (07:51)
[2020-08-31] MEDS: ASPIRIN 81 MG PO SCH (07:51)
[2020-08-31] MEDS: METOPROLOL TARTRATE 50 MG TAB PO SCH (07:52)
[2020-08-31] MEDS: APIXABAN 2.5 MG TABLET PO SCH (07:52)
[2020-08-31] MEDS: DEXAMETHASONE SOD PHOSPHATE 10 MG/ML 1 ML VIAL IV SCH (07:52)
[2020-08-31] MEDS: AMIODARONE 450 MG in DEXTROSE 5% IN WATER 250 ML IV SCH ×2 (07:52)
[2020-08-31] MEDS ORDERED: SODIUM CHLORIDE 0.9% 1,000 ML IV ONE ×2 (09:03→11:07)
[2020-08-31] MEDS ORDERED: SODIUM CHLORIDE 0.9% 50 ML with VASOPRESSIN 20 UNIT IVPB SCH ×2 (10:30)
--- NOTE | 2020-08-31 11:59 | P.PN ---
Subjective Progress Note Date: 08/31/20 Principal diagnosis: Acute hypoxic respiratory failure secondary to COVID-19 pneumonia. Being seen by pulmonary because of COVID 19 related infection/pneumonia. The patient is known to have CAD hypertension and hyperlipidemia. He started having symptoms of decreased appetite and chills and fever approximately 8 days ago. He was also found to have a new onset atrial fibrillation by cardiology and he came into the emergency having significant shortness of breath. He was started on Cardizem drip at 5 mg an hour for rate control. Meanwhile, his chest x-ray showed patchy bilateral pulmonary infiltrates mainly involving the lower lobes bilaterally consistent with community related pneumonia. The patient also had blood work that showing a normal white cell count, platelet refuses 110, d-dimer is at 0.9, creatinine is at 1.3, lactic acid level was initiated 11 dropped down to 2.9, LDH is 25-0 and the CRP is at 58. Troponin was 0.226 at a time of admission. Currently the patient is on 15 L of oxygen by nasal cannula with a pulse ox of 91%. The patient is hemodynamically stable at this point in time. The patient is on Eliquis 2.5 mg by mouth twice a day. He also thought to be started on Decadron this milligrams IV every 24 hours. He did receive his first dose of Decadron in the emergency department. Echocardiogram showing a normal ejection fraction of 50-55%. He is known to have CAD and previous cardiac catheterization from 2018 showed occluded mid RCA, intermittent disease in the circumflex, patent stent in the LAD. 08/26/2020 the patient remains on 15 L of oxygen by nasal cannula. With exertion, he gets short of breath. At rest he is doing well. He is still in a sinus rhythm. He remains on steroids regarding his Covid associated pneumonia. No angina. No palpitations. No syncope. No fever. No chills. No nausea vomiting or diarrhea. The patient's cardiac rhythm is back to sinus. He is not having any cardiac arrhythmias. No fibrillation for now. No chest pain. No nausea. No vomiting. The patient is on long-term anticoagulation with Eliquis 2.5 mg by mouth twice a day. Echocardiogram was within normal limits. 08/27/2020, the patient remains on 15 L of oxygen by nasal cannula. No significant improvement or worsening his condition. He is in sinus rhythm and remains on 50 L of oxygen by nasal cannula. His last chest x-ray was from 08/26/2020 and it was showing bilateral pulmonary infiltrates consistent with COVID-19 related pneumonia. No new labs are available from today. The LDH from yesterday was 2-3 to in the CRP level was 43.7. He is also on Eliquis 2.5 mg by mouth twice a day. He is short of breath. On and off his cough . No major improvement. Upon our bedside evaluation, his pulse ox was noted to be at around 81%. A full face mask was also added as the patient is currently mouth breathing. No tachypnea. Able to speak up sentences. 08/28/2020, condition has been worse and the patient is currently on BiPAP at a pressure of 12/6 cm of water with an FiO2 of 90%. He is feeling tachypneic and short of breath even while in the BiPAP. His minute ventilation is around 19 L. He is able to generate a tidal volume of 730 with a respiratory rate of 27. He is awake, labored breathing and one on the BiPAP. His follow-up chest x-ray from today showing bilateral pulmonary infiltrates worse on the right. In comparison, there has been no major interval change. Nevertheless, the patient's oxygenation has been getting worse. Note that he was on 15 L of oxygen earlier. His labs are still pending from today. His sugars to 39. In terms of treatment, he is on Decadron 6 mg and he is on long-term atrial fibrillation with Eliquis 2.5 mg twice a day. 08/29/2020, the patient is being seen for a follow-up. He was seen in evaluation yesterday the patient was getting worse with worsening oxygenation and overall respiratory status. He was placed on BiPAP at a pressure of 12/8 with an FiO2 of 90%. On today's evaluation, the patient remains on BiPAP therapy and level of pressure and FiO2 is currently at 100%. His current pulse ox is ranging between 86-90%. He is sleeping on his right lateral side. He is having frequent coughing spells. Obviously his breathing is labored and the patient is quite uncomfortable and he remains on Decadron. In terms of treatment, his inflammatory markers showed LDH of 3749 and CRP of 1.6. LDH is significantly elevated. The patient also had elevation in the D dimers. In addition to Decadron, we ordered Tocilizumab was given to him on 08/27/2020. Yesterday's chest x-ray was obviously will showing diffuse bilateral pulmonary infiltrates and no chest x-rays available from today. As stated, the patient is having labored breathing. He remains on Eliquis 2.5 mg by mouth twice a day. He has a high minute ventilation in the order of 30 L per minute. Receiving Ativan 0.5 every 4 hours in addition to morphine 4 mg every 4 hours IV. This is controlling his agitation, otherwise, the patient will be pulling on his mask and on his tubing. Patient was reevaluated on 08/30/2020,, patient seems to be in moderate to severe respiratory distress, he is on BiPAP, he is also on Precedex, does not seem to be doing well, his O2 saturations are low in spite of FiO2 of 100% with IPAP of 14 EPAP of 10. Patient looks extremely lethargic, only wiggles his toes to verbal instructions. Otherwise unable to conduct a conversation. Hence after reviewing his x-ray and reviewing his labs, and evaluating the patient clinically, family was reached by the admitting physician about his CODE STATUS, and family had no problem since patient being intubated. I recommended intubating the patient because he was getting worse in spite of BiPAP. Post in tubation chest x-ray showed adequate placement of the endotracheal tube and he continues to have bilateral bibasilar interstitial infiltrates. D-dimer today was noted to be up to 54.10 electrolytes are normal renal profile is normal LDH is on the rise up to 3749 and C-reactive protein is down to 1.6 his ventilator settings were noted and adjusted further once we have an ABG on the same vent settings right now. Patient was reevaluated today on 08/31/2020, patient remains intubated and mechanically ventilated. Does not seem to be doing well today, as a matter of fact he is worse, patient is requiring multiple pressors including norepinephrine and vasopressin, blood pressure remains marginal in spite of fluid boluses. Instructed the nurses to update the family on his condition, patient is definitely worse today than he was yesterday. And his condition is critical. Patient is now on assist control rate of 28th of volume is 450 FiO2 90% PEEP was 14 ABG showed a pO2 of 64 pCO2 of 79 pH of 7.10. Peak airway pressure is 28 static pressures 29. Remains on propofol at 15 norepinephrine 0.4 mcg/kg/m, vasopressin was added, he is also on amiodarone at 0.5 mg/m. Fluid boluses were given. PEEP was increased to 16. The flow rate was increased to 65 FiO2 was decreased to 80% and his rate was increased to 32. WBC count is 19.8 hemoglobin is 17.8. LDH is rising, today it's 3563, and his CPK is 1416 Objective - Vital Signs Vital signs: Vital Signs Temp 103.2 F H 08/31/20 08:00 Pulse 96 08/31/20 11:15 Resp 32 H 08/31/20 11:15 BP 100/34 08/31/20 11:15 Pulse Ox 87 L 08/31/20 11:15 Intake & Output 08/30/20 08/31/20 08/31/20 18:59 06:59 18:59 Intake Total 8816.476 4527.363 2339.596 Output Total 495 360 145 Balance 1187.248 997.563 9225.596 Weight 97 kg 94.5 kg Intake: IV 6389 065 0916 Sodium Chloride 0.9% 1, 975 825 725 000 ml @ 75 mls/hr IV . [id number] [facility] Rx#:[id number] Sodium Chloride 0.9% 055 863 9505 ml 500 ml @ 999 mls/hr IV .Q31M [facility] Rx#:[id number] Intake, IV Titration 207.248 317.363 484.596 Amount Amiodarone 450 mg In 244.727 Dextrose 5% in Water 250 ml @ 0.5 MG/MIN 16.667 mls/hr IV .Q15H [facility] Rx#: [id number] Dexmedetomidine/0.9% NaCl 32.374 (Pmx) 400 mcg In Empty Bag 1 bag @ Titrate IV . Q0M [facility] Rx#:[id number] Norepinephrine 32 mg In 36.376 116.308 139.396 Sodium Chloride 0.9% 218 ml @ 0.05 MCG/KG/MIN 2. 273 mls/hr IV .Q24H [facility] Rx#:[id number] Norepinephrine 4 mg In 38.498 Sodium Chloride 0.9% 250 ml @ 0.05 MCG/KG/MIN 18. 479 mls/hr IV .[id number] [facility] Rx#:[id number] propofoL 1,000 mg In 100.000 201.055 100.473 Empty Bag 1 bag @ Titrate IV .Q0M [facility] Rx#: [id number] Tube Feeding 140 100 Other 60 30 Output: Urine 495 360 145 Other: Voiding Method Indwelling Catheter Indwelling Catheter Indwelling Catheter ABP, PAP, CO, CI - Last Documented Arterial Blood Pressure 85/51 - Exam Gen.: Revealed a 84-year-old male . On mechanical ventilation, fully sedated propofol and not requiring any Nimbex. HEENT: Normocephalic. Neck is supple. Pupils reactive. Nostrils clear. Oral cavity is moist. Ears reveal no drainage. The tracheal tube and orogastric tube are intact. Neck reveals no JVD, carotid bruits, or thyromegaly. CHEST EXAMINATION: Symmetrical expansion. Fine crackles noted at the bases. CARDIAC: Normal S1, S2 with no gallops. No murmurs ABDOMEN: Soft. Bowel sounds normal. No organomegaly. No abdominal bruits. Extremities: reveal no edema. No clubbing or cyanosis Neurologically : Could not be assessed, patient is sedated Skin: No rash or skin lesions. Psychiatric: Not assess. Musculoskeletal: No joint swelling or deformity. - Labs CBC & Chem 7: 08/31/20 04:50 08/30/20 11:05 Labs: Abnormal Lab Results - Last 24 Hours (Table) 08/30/20 08/30/20 08/30/20 Range/Units 11:05 11:05 11:48 WBC (3.8-10.6) k/uL RBC (4.30-5.90) m/uL Hgb (13.0-17.5) gm/dL Hct (39.0-53.0) % RDW (11.5-15.5) % Plt Count (150-450) k/uL Neutrophils # (1.3-7.7) k/uL Lymphocytes # (1.0-4.8) k/uL Basophils # (0-0.2) k/uL PT 21.7 H (9.0-12.0) sec INR 2.2 H (<1.2) D-Dimer >34.10 H (<0.60) mg/L FEU ABG pH (7.35-7.45) ABG pCO2 (35-45) mmHg ABG pO2 (83-108) mmHg ABG Total CO2 (19-24) mmol/L ABG O2 Saturation (94-97) % Chloride 112 H (98-107) mmol/L BUN 50 H (9-20) mg/dL Glucose 189 H (74-99) mg/dL POC Glucose (mg/dL) 172 H (75-99) mg/dL Ferritin 485.7 H (22.0-322.0) ng/mL Total Bilirubin 2.1 H (0.2-1.3) mg/dL AST 129 H (17-59) U/L ALT 66 H (4-49) U/L Alkaline Phosphatase 131 H (38-126) U/L Lactate Dehydrogenase 3563 H (313-618) U/L Creatine Kinase 1416 H* (55-170) U/L C-Reactive Protein 1.1 H (<1.0) mg/dL Total Protein 5.7 L (6.3-8.2) g/dL Albumin 3.0 L (3.5-5.0) g/dL 08/30/20 08/30/20 08/31/20 Range/Units 17:42 23:47 04:50 WBC 19.8 H (3.8-10.6) k/uL RBC 6.16 H (4.30-5.90) m/uL Hgb 17.8 H (13.0-17.5) gm/dL Hct 54.8 H (39.0-53.0) % RDW 16.1 H (11.5-15.5) % Plt Count 147 L (150-450) k/uL Neutrophils # 17.5 H (1.3-7.7) k/uL Lymphocytes # 0.5 L (1.0-4.8) k/uL Basophils # 0.4 H (0-0.2) k/uL PT (9.0-12.0) sec INR (<1.2) D-Dimer (<0.60) mg/L FEU ABG pH (7.35-7.45) ABG pCO2 (35-45) mmHg ABG pO2 (83-108) mmHg ABG Total CO2 (19-24) mmol/L ABG O2 Saturation (94-97) % Chloride (98-107) mmol/L BUN (9-20) mg/dL Glucose (74-99) mg/dL POC Glucose (mg/dL) 187 H 195 H (75-99) mg/dL Ferritin (22.0-322.0) ng/mL Total Bilirubin (0.2-1.3) mg/dL AST (17-59) U/L ALT (4-49) U/L Alkaline Phosphatase (38-126) U/L Lactate Dehydrogenase (313-618) U/L Creatine Kinase (55-170) U/L C-Reactive Protein (<1.0) mg/dL Total Protein (6.3-8.2) g/dL Albumin (3.5-5.0) g/dL 08/31/20 08/31/20 08/31/20 Range/Units 04:50 04:50 06:14 WBC (3.8-10.6) k/uL RBC (4.30-5.90) m/uL Hgb (13.0-17.5) gm/dL Hct (39.0-53.0) % RDW (11.5-15.5) % Plt Count (150-450) k/uL Neutrophils # (1.3-7.7) k/uL Lymphocytes # (1.0-4.8) k/uL Basophils # (0-0.2) k/uL PT (9.0-12.0) sec INR (<1.2) D-Dimer >34.10 H (<0.60) mg/L FEU ABG pH 7.10 L* (7.35-7.45) ABG pCO2 79 H* (35-45) mmHg ABG pO2 64 L (83-108) mmHg ABG Total CO2 27 H (19-24) mmol/L ABG O2 Saturation 86.6 L (94-97) % Chloride (98-107) mmol/L BUN (9-20) mg/dL Glucose (74-99) mg/dL POC Glucose (mg/dL) 121 H (75-99) mg/dL Ferritin (22.0-322.0) ng/mL Total Bilirubin (0.2-1.3) mg/dL AST (17-59) U/L ALT (4-49) U/L Alkaline Phosphatase (38-126) U/L Lactate Dehydrogenase (313-618) U/L Creatine Kinase (55-170) U/L C-Reactive Protein (<1.0) mg/dL Total Protein (6.3-8.2) g/dL Albumin (3.5-5.0) g/dL Assessment and Plan Assessment: Acute hypoxic respiratory failure secondary to Covid Pneumonia. Worsening clinical status requiring intubation and mechanical ventilation. On 08/30/2020. Paroxysmal Atrial fibrillation with RVR, new onset, secondary to the above, currently sinus. on Eliquis Acute renal failure, improving Transaminitis, secondary to COVID-19 infection. Lactic acidosis, resolved CAD with history of CT, stenting of LAD Moderate pulmonary hypertension Troponin leak. Chronic CHF, diastolic dysfunction Hypertension Hyperlipidemia Former nicotine dependence Gait dysfunction, osteoarthritis, uses walker Recommendation: Continue ventilatory support. Patient was out of the window for rem Patient received toci Continue Eliquis. Continue to monitor cardiac rhythm. Family to be re-updated on his condition and clinical deterioration. Continue nutritional support/enteral feeding. Continue GI and DVT prophylaxis. Prognosis is extremely poor and guarded. Critical care time is over 30 minutes. Time with Patient: Greater than 30
[2020-08-31 12:06] LABS: Potassium 6.2 mmol/L (3.5-5.1)
[2020-08-31 12:15] LABS: Calcium 7.8 mg/dL (8.4-10.2)
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
[2020-08-31 12:16] LABS: Glucose,Whole Blood 158 mg/dL (75-99)
[2020-08-31 13:12] LABS: Anisocytosis Slight; HCT 49.4 % (39.0-53.0); Hypochromasia Marked; MCV 90.7 fL (80.0-100.0); Mean Platelet Volume 10.3; Platelet Count 113 k/uL (150-450); Poikilocytosis Slight; RBC 5.44 m/uL (4.30-5.90); RDW 16.1 % (11.5-15.5); WBC 18.2 k/uL (3.8-10.6)
[2020-08-31 13:24] LABS: HGB 14.6 gm/dL (13.0-17.5); MCH 26.6 pg (25.0-35.0); MCHC 29.6 g/dL (31.0-37.0)
[2020-08-31 14:08] LABS: Calcium 7.2 mg/dL (8.4-10.2)
[2020-08-31 14:10] LABS: Potassium 7.1 mmol/L (3.5-5.1)
[2020-08-31] MEDS ORDERED: DEXTROSE 50% SYRINGE 50 ML IVP STA (14:52)
[2020-08-31] MEDS ORDERED: INSULIN REGULAR 100 UNIT/ML VIAL IV ONE (14:52)
[2020-08-31] MEDS ORDERED: SODIUM POLYSTYRENE SULFONATE 15 GM/60 ML BOTTLE PO STA (14:52)
[2020-08-31] MEDS ORDERED: SODIUM BICARB 8.4% 50 ML SYR (1 MEQ/ML) IV STA (14:52)
[2020-08-31] MEDS ORDERED: CALCIUM GLUCONATE 1 GM in SODIUM CHLORIDE 0.9% 100 ML IVPB ONE (15:00)
[2020-08-31 15:28] VITALS: TEMP 101.2
[2020-08-31 15:43] LABS: Amorphous Sediment,Urine Many /hpf; Appearance,Urine Turbid (Clear); Bacteria,Urine Moderate /hpf; Bilirubin,Urine Negative (Negative); Blood,Urine Large (Negative); Color,Urine Dark Brown; Glucose,Urine (UA) Trace (Negative); Ketones,Urine Negative (Negative); Leukocyte Esterase,Urine Small (Negative); Mucus,Urine Rare /hpf; Nitrite,Urine Negative (Negative); PH, Urine 5.5 (5.0-8.0); Protein,Urine 2+ (Negative); RBC,Urine >182 /hpf (0-5); Specific Gravity,Urine 1.021 (1.001-1.035); Urobilinogen,Urine <2.0 mg/dL (<2.0)
--- NOTE | 2020-08-31 16:46 | P.PN ---
Subjective Progress Note Date: 08/31/20 Christoph Olvera is an 84 yo M with PMH of CAD s/p stenting of LAD, HTN and HLD who presented to the ED with shortness of breath. Patient states 8 days ago started having symptoms of decreased appetite, chills, fever. Over the past week he has been feeling more short of breath, increased abdominal pain. On presentation he was found to be in atrial fibrillation with RVR rate of 190, hypoxic requiring high flow O2. COVID PCR positive. Patient started on cardizem drip at 5mg/hr and lovenox. Laboratory data reviewed, D-dimer 0.91, Sodium 136, K 3.6, Cr 1.38, BUN 27, Lactate 11.1->2.9, AST 203, ALT 65, elevated LDH, elevated CRP. He denies tobacco or alcohol use. 08/26/2020 maintained on 15 L high flow with O2 sats in the high 80s to low 90s. Chest x-ray reporting improving bibasilar infiltrates. Continues on Decadron. Breathing improving, reporting exertional shortness of breath. Reports occasional cough. Denies chest pain, palpitations. Telemetry reporting sinus rhythm with PVCs. Magnesium 2.1, potassium 3.5. Echo reporting preserved LV function, EF 55-60%, moderate pulmonary hypertension. Anticoagulated on Eliquis. Denies nausea vomiting or diarrhea. 08/27/2020 Maintained on the Covid cocktail .continues on 15 L high flow nasal cannula maintaining O2 sat of 88 to 94%. Conversing without shortness of breath. Occasional nonproductive cough Anticoagulated on Eliquis and aspirin. Telemetry sinus rhythm. 08/30/2020 respiratory status worsened despite BiPAP and required transfer to the ICU. Respiratory status continues to decline, maintaining O2 sats in the low to mid 80s, despite being on BiPAP and Precedex. Patient is becoming increasingly tired. Chest x-ray reporting COPD with patchy in bed and lower lung infiltrates, minimally improved. Intubation being discussed by pulmonary. Patient's daughter contacted by PCP, Dr. Miguel Rm, addressed CODE STATUS. Patient's daughter stated her dad was delirious and that he needed to be a full code and that he is to be intubated if needed. D-dimer greater than 34.1, LDH 2563, CK 1416, C-reactive protein 1.1. T bili up to 2.1, AST 129, ALT 66, alk phos 131. 08/31/2020 Clinically, declining. Vent dependent, ABGs noted ,FiO2 decreased to 80%/PEEP increased to +16. ABGs noted. Maintained on norepinephrine, vasopre ssin, diprovan, amiodarone drips. Map 63. Received fluid boluses. Febrile, T- max 103.2, WBC trending down, being placed on a cooling blanket. Labs pending. Objective - Vital Signs Vital signs: Vital Signs Temp 101.2 F H 08/31/20 14:30 Pulse 94 08/31/20 15:15 Resp 32 H 08/31/20 15:15 BP 103/78 08/31/20 14:30 Pulse Ox 54 L 08/31/20 15:15 Intake & Output 08/30/20 08/31/20 08/31/20 18:59 06:59 18:59 Intake Total 3482.313 5707.363 4507.622 Output Total 495 360 155 Balance 1187.248 423.635 2280.622 Weight 97 kg 94.5 kg Intake: IV 8022 342 7278 Sodium Chloride 0.9% 1, 147 829 2364 000 ml @ 75 mls/hr IV . [id number] [facility] Rx#:[id number] Sodium Chloride 0.9% 164 915 4924 ml 500 ml @ 999 mls/hr IV .Q31M [facility] Rx#:[id number] Intake, IV Titration 207.248 317.363 632.622 Amount Amiodarone 450 mg In 244.727 Dextrose 5% in Water 250 ml @ 0.5 MG/MIN 16.667 mls/hr IV .Q15H [facility] Rx#: [id number] Dexmedetomidine/0.9% NaCl 32.374 (Pmx) 400 mcg In Empty Bag 1 bag @ Titrate IV . Q0M [facility] Rx#:[id number] Norepinephrine 32 mg In 36.376 116.308 250.000 Sodium Chloride 0.9% 218 ml @ 0.05 MCG/KG/MIN 2. 273 mls/hr IV .Q24H [facility] Rx#:[id number] Norepinephrine 4 mg In 38.498 Sodium Chloride 0.9% 250 ml @ 0.05 MCG/KG/MIN 18. 479 mls/hr IV .[id number] [facility] Rx#:[id number] propofoL 1,000 mg In 100.000 201.055 137.895 Empty Bag 1 bag @ Titrate IV .Q0M [facility] Rx#: [id number] Tube Feeding 140 120 Other 60 30 Output: Urine 495 360 155 Other: Voiding Method Indwelling Catheter Indwelling Catheter Indwelling Catheter ABP, PAP, CO, CI - Last Documented Arterial Blood Pressure 46/31 - Exam Physical exam Limited, defer to tank inspector, COVID intubated patient Gen: Sitting up in bed, sedated and on mechanical ventilator CV: RRR, mild tachycardia Neuro: Unable to assess, on mechanical ventilation and sedated - Labs CBC & Chem 7: 08/31/20 12:30 08/31/20 12:30 Labs: Abnormal Lab Results - Last 24 Hours (Table) 08/30/20 08/30/20 08/30/20 Range/Units 11:05 17:42 23:47 WBC (3.8-10.6) k/uL RBC (4.30-5.90) m/uL Hgb (13.0-17.5) gm/dL Hct (39.0-53.0) % MCHC (31.0-37.0) g/dL RDW (11.5-15.5) % Plt Count (150-450) k/uL Neutrophils # (1.3-7.7) k/uL Lymphocytes # (1.0-4.8) k/uL Basophils # (0-0.2) k/uL D-Dimer (<0.60) mg/L FEU ABG pH (7.35-7.45) ABG pCO2 (35-45) mmHg ABG pO2 (83-108) mmHg ABG Total CO2 (19-24) mmol/L ABG O2 Saturation (94-97) % Potassium (3.5-5.1) mmol/L Chloride (98-107) mmol/L Carbon Dioxide (22-30) mmol/L BUN (9-20) mg/dL Creatinine (0.66-1.25) mg/dL Glucose (74-99) mg/dL POC Glucose (mg/dL) 187 H 195 H (75-99) mg/dL Calcium (8.4-10.2) mg/dL Ferritin 485.7 H (22.0-322.0) ng/mL Urine Protein (Negative) Urine Glucose (UA) (Negative) Urine Blood (Negative) Ur Leukocyte Esterase (Negative) Urine RBC (0-5) /hpf Amorphous Sediment (None) /hpf Urine Bacteria (None) /hpf Urine Mucus (None) /hpf 08/31/20 08/31/20 08/31/20 Range/Units 04:50 04:50 04:50 WBC 19.8 H (3.8-10.6) k/uL RBC 6.16 H (4.30-5.90) m/uL Hgb 17.8 H (13.0-17.5) gm/dL Hct 54.8 H (39.0-53.0) % MCHC (31.0-37.0) g/dL RDW 16.1 H (11.5-15.5) % Plt Count 147 L (150-450) k/uL Neutrophils # 17.5 H (1.3-7.7) k/uL Lymphocytes # 0.5 L (1.0-4.8) k/uL Basophils # 0.4 H (0-0.2) k/uL D-Dimer >34.10 H (<0.60) mg/L FEU ABG pH 7.10 L* (7.35-7.45) ABG pCO2 79 H* (35-45) mmHg ABG pO2 64 L (83-108) mmHg ABG Total CO2 27 H (19-24) mmol/L ABG O2 Saturation 86.6 L (94-97) % Potassium (3.5-5.1) mmol/L Chloride (98-107) mmol/L Carbon Dioxide (22-30) mmol/L BUN (9-20) mg/dL Creatinine (0.66-1.25) mg/dL Glucose (74-99) mg/dL POC Glucose (mg/dL) (75-99) mg/dL Calcium (8.4-10.2) mg/dL Ferritin (22.0-322.0) ng/mL Urine Protein (Negative) Urine Glucose (UA) (Negative) Urine Blood (Negative) Ur Leukocyte Esterase (Negative) Urine RBC (0-5) /hpf Amorphous Sediment (None) /hpf Urine Bacteria (None) /hpf Urine Mucus (None) /hpf 08/31/20 08/31/20 08/31/20 Range/Units 06:14 10:05 10:38 WBC (3.8-10.6) k/uL RBC (4.30-5.90) m/uL Hgb (13.0-17.5) gm/dL Hct (39.0-53.0) % MCHC (31.0-37.0) g/dL RDW (11.5-15.5) % Plt Count (150-450) k/uL Neutrophils # (1.3-7.7) k/uL Lymphocytes # (1.0-4.8) k/uL Basophils # (0-0.2) k/uL D-Dimer (<0.60) mg/L FEU ABG pH (7.35-7.45) ABG pCO2 (35-45) mmHg ABG pO2 (83-108) mmHg ABG Total CO2 (19-24) mmol/L ABG O2 Saturation (94-97) % Potassium 6.2 H* (3.5-5.1) mmol/L Chloride 117 H (98-107) mmol/L Carbon Dioxide 10 L (22-30) mmol/L BUN 67 H (9-20) mg/dL Creatinine 2.40 H (0.66-1.25) mg/dL Glucose 208 H (74-99) mg/dL POC Glucose (mg/dL) 121 H (75-99) mg/dL Calcium 7.8 L (8.4-10.2) mg/dL Ferritin (22.0-322.0) ng/mL Urine Protein 2+ H (Negative) Urine Glucose (UA) Trace H (Negative) Urine Blood Large H (Negative) Ur Leukocyte Esterase Small H (Negative) Urine RBC >182 H (0-5) /hpf Amorphous Sediment Many H (None) /hpf Urine Bacteria Moderate H (None) /hpf Urine Mucus Rare H (None) /hpf 08/31/20 08/31/20 08/31/20 Range/Units 12:13 12:30 12:30 WBC 18.2 H (3.8-10.6) k/uL RBC (4.30-5.90) m/uL Hgb (13.0-17.5) gm/dL Hct (39.0-53.0) % MCHC 29.6 L (31.0-37.0) g/dL RDW 16.1 H (11.5-15.5) % Plt Count 113 L (150-450) k/uL Neutrophils # (1.3-7.7) k/uL Lymphocytes # (1.0-4.8) k/uL Basophils # (0-0.2) k/uL D-Dimer (<0.60) mg/L FEU ABG pH (7.35-7.45) ABG pCO2 (35-45) mmHg ABG pO2 (83-108) mmHg ABG Total CO2 (19-24) mmol/L ABG O2 Saturation (94-97) % Potassium 7.1 H* (3.5-5.1) mmol/L Chloride 114 H (98-107) mmol/L Carbon Dioxide 14 L (22-30) mmol/L BUN 77 H (9-20) mg/dL Creatinine 2.94 H (0.66-1.25) mg/dL Glucose 244 H (74-99) mg/dL POC Glucose (mg/dL) 158 H (75-99) mg/dL Calcium 7.2 L (8.4-10.2) mg/dL Ferritin (22.0-322.0) ng/mL Urine Protein (Negative) Urine Glucose (UA) (Negative) Urine Blood (Negative) Ur Leukocyte Esterase (Negative) Urine RBC (0-5) /hpf Amorphous Sediment (None) /hpf Urine Bacteria (None) /hpf Urine Mucus (None) /hpf Assessment and Plan Assessment: Acute hypoxic respiratory failure secondary to Covid Pneumonia, mechanical ventilator-dependent Hypotension secondary to the above, pressor dependent despite fluid boluses Paroxysmal Atrial fibrillation with RVR, new onset, secondary to the above, currently sinus Acute renal failure, improving Transaminitis, secondary to Covid, improving Lactic acidosis, resolved CAD with history of [place], stenting of LAD Moderate pulmonary hypertension Elevated troponins, secondary to Covid and JOSÉ MIGUEL as per cardiology. Chronic CHF, diastolic dysfunction Hypertension Hyperlipidemia Former nicotine dependence Gait dysfunction, osteoarthritis, uses walker Plan: Continue on current medication regime ,monitoring and symptomatic treatment. Condition significantly worse today , family being re-updated .Prognosis poor, given multiple complex medical issues. The impression and plan of care has been dictated as directed. Dr.: I performed a history and examination of this patient, discussed the same with the dictator. I agree with the dictator's note ,documented as a scribe. Any additional findings or plans will be noted.
[2020-08-31 16:57] LABS: Glucose,Whole Blood <20 mg/dL (75-99)
[2020-08-31 17:38] VITALS: BP 98/60; PULSE 0; RESP 72
[2020-08-31] MEDS ORDERED: AMIODARONE 200 MG TAB PO SCH (21:00)
[2020-08-31] MEDS ORDERED: APIXABAN 2.5 MG TABLET PO SCH (21:00)
[2020-08-31] MEDS ORDERED: APIXABAN 5 MG TAB PO SCH (21:00)
--- NOTE | 2020-09-13 15:53 | P.DS ---
Providers Date of admission: 08/25/20 06:21 Expected date of discharge: 08/31/20 Attending physician: Miguel Rm MD Consults: 08/25/20 06:21 Consult Physician Routine Consulting Provider: Alf Hill Consult Reason/Comments: afib Do you want consulting provider notified?: Yes Consult Physician Routine Consulting Provider: Michele Wells Consult Reason/Comments: covid Do you want consulting provider notified?: Yes 08/30/20 12:24 Consult Physician Routine Consulting Provider: Larry Ridley Consult Reason/Comments: afib RVR/Vtach runs Do you want consulting provider notified?: Yes Primary care physician: Kaylynn Rocha - [place] Diagnosis(es) (1) Coronary artery disease Status: Acute (2) Acute respiratory failure with hypoxia Status: Acute (3) Atrial fibrillation with RVR Status: Acute (4) Coronavirus infection Status: Acute (5) Pneumonia due to COVID-19 virus Status: Acute Hospital Course: Christoph Olvera is an 84 yo M with PMH of CAD s/p stenting of LAD, HTN and HLD who presented to the ED with shortness of breath. Patient states 8 days ago started having symptoms of decreased appetite, chills, fever. Over the past week he has been feeling more short of breath, increased abdominal pain. On presentation he was found to be in atrial fibrillation with RVR rate of 190, hypoxic requiring high flow O2. COVID PCR positive. Patient started on cardizem drip at 5mg/hr and lovenox. Laboratory data reviewed, D-dimer 0.91, Sodium 136, K 3.6, Cr 1.38, BUN 27, Lactate 11.1->2.9, AST 203, ALT 65, elevated LDH, elevated CRP. He denies tobacco or alcohol use. 08/26/2020 maintained on 15 L high flow with O2 sats in the high 80s to low 90s. Chest x-ray reporting improving bibasilar infiltrates. Continues on Decadron. Breathing improving, reporting exertional shortness of breath. Reports occasional cough. Denies chest pain, palpitations. Telemetry reporting sinus rhythm with PVCs. Magnesium 2.1, potassium 3.5. Echo reporting preserved LV function, EF 55-60%, moderate pulmonary hypertension. Anticoagulated on Eliquis. Denies nausea vomiting or diarrhea. 08/27/2020 Maintained on the Covid cocktail .continues on 15 L high flow nasal cannula maintaining O2 sat of 88 to 94%. Conversing without shortness of breath. Occasional nonproductive cough Anticoagulated on Eliquis and aspirin. Telemetry sinus rhythm. 08/30/2020 respiratory status worsened despite BiPAP and required transfer to the ICU. Respiratory status continues to decline, maintaining O2 sats in the low to mid 80s, despite being on BiPAP and Precedex. Patient is becoming increasingly tired. Chest x-ray reporting COPD with patchy in bed and lower lung infiltrates, minimally improved. Intubation being discussed by pulmonary. Patient's daughter contacted by PCP, Dr. Miguel Rm, addressed CODE STATUS. Patient's daughter stated her dad was delirious and that he needed to be a full code and that he is to be intubated if needed. D-dimer greater than 34.1, LDH 2563, CK 1416, C-reactive protein 1.1. T bili up to 2.1, AST 129, ALT 66, alk phos 131. 08/31/2020 Clinically, declining. Vent dependent, ABGs noted ,FiO2 decreased to 80%/PEEP increased to +16. ABGs noted. Maintained on norepinephrine, vasopressin, diprovan, amiodarone drips. Map 63. Received fluid boluses. Febrile, T-max 103.2, WBC trending down, being placed on a cooling blanket. Labs pending. Pt continued to clinically worsen and around 2 pm an code blue was called. He experienced cardiopulmonary arrest and succumbed to his illness. Patient Condition at Discharge: Critical Plan - Discharge Summary Discharge Rx Participant: No New Discharge Prescriptions: New Apixaban [Eliquis] 2.5 mg PO BID 30 Days #60 tablet No Action Metoprolol Tartrate 25 mg PO BID Ergocalciferol [Vitamin D2 (DRISDOL)] 50,000 unit PO Q7D Acetaminophen Tab [Tylenol] 500 mg PO Q4H PRN PRN Reason: Pain Aspirin 325 mg PO DAILY hydroCHLOROthiazide 25 mg PO DAILY Omeprazole Magnesium [PriLOSEC] 20 mg PO BID Atorvastatin [Lipitor] 40 mg PO HS Isosorbide Mononitrate ER [Imdur] 30 mg PO DAILY Cyanocobalamin (Vitamin B-12) [Vitamin B-12] 1,000 mcg PO DAILY Discharge Medication List Ergocalciferol [Vitamin D2 (DRISDOL)] 50,000 unit PO Q7D 07/09/15 [History] Metoprolol Tartrate 25 mg PO BID 07/09/15 [History] Acetaminophen Tab [Tylenol] 500 mg PO Q4H PRN 12/14/17 [History] Aspirin 325 mg PO DAILY 12/14/17 [History] hydroCHLOROthiazide 25 mg PO DAILY 12/18/17 [History] Apixaban [Eliquis] 2.5 mg PO BID 30 Days #60 tablet 08/25/20 [Rx] Atorvastatin [Lipitor] 40 mg PO HS 08/25/20 [History] Cyanocobalamin (Vitamin B-12) [Vitamin B-12] 1,000 mcg PO DAILY 08/25/20 [History] Isosorbide Mononitrate ER [Imdur] 30 mg PO DAILY 08/25/20 [History] Omeprazole Magnesium [PriLOSEC] 20 mg PO BID 08/25/20 [History] Follow up Appointment(s)/Referral(s): Logan Marie MD [STAFF PHYSICIAN] - 3 Weeks [facility], [NON-STAFF] - Kaylynn Rocha MD [Primary Care Provider] - 1-2 days Discharge Disposition: - Preliminary Cause of Preliminary Cause of : COVID
== END 2020-08-31 18:14 | disposition expired | DRG 208 ==
LOC: EC 03:51 → 3SCARD 06:21 → 2SICU 08-29 11:18
PROVIDERS: ADMIT Family Medicine; ATTEND Family Medicine
PROC: 3E0333Z Introduction of Anti-inflammatory into Peripheral Vein, Percutaneous Approach (ICD-10-PCS; 2020-08-25)
PROC: 5A0945A Assistance with Respiratory Ventilation, 24-96 Consecutive Hours, High Flow/Velocity Cannula (ICD-10-PCS; 2020-08-25)
PROC: XW033H5 Introduction of Tocilizumab into Peripheral Vein, Percutaneous Approach, New Technology Group 5 (ICD-10-PCS; 2020-08-27 17:20)
PROC: 5A09457 Assistance with Respiratory Ventilation, 24-96 Consecutive Hours, Continuous Positive Airway Pressure (ICD-10-PCS; 2020-08-28)
PROC: 03HY32Z Insertion of Monitoring Device into Upper Artery, Percutaneous Approach (ICD-10-PCS; 2020-08-30)
PROC: 4A133B1 Monitoring of Arterial Pressure, Peripheral, Percutaneous Approach (ICD-10-PCS; 2020-08-30)
PROC: 4A133J1 Monitoring of Arterial Pulse, Peripheral, Percutaneous Approach (ICD-10-PCS; 2020-08-30)
PROC: 0BH17EZ Insertion of Endotracheal Airway into Trachea, Via Natural or Artificial Opening (ICD-10-PCS; 2020-08-30)
PROC: 02HV33Z Insertion of Infusion Device into Superior Vena Cava, Percutaneous Approach (ICD-10-PCS; 2020-08-30)
PROC: 3E033XZ Introduction of Vasopressor into Peripheral Vein, Percutaneous Approach (ICD-10-PCS; 2020-08-30)
PROC: 5A1935Z Respiratory Ventilation, Less than 24 Consecutive Hours (ICD-10-PCS; principal; 2020-08-30 17:55)
DX: U07.1 COVID-19 (principal); J12.82 Pneumonia due to coronavirus disease 2019; J96.01 Acute respiratory failure with hypoxia; N17.9 Acute kidney failure, unspecified; C18.9 Malignant neoplasm of colon, unspecified; E87.2 Acidosis; I50.32 Chronic diastolic (congestive) heart failure; I46.8 Cardiac arrest due to other underlying condition; M17.0 Bilateral primary osteoarthritis of knee; I25.82 Chronic total occlusion of coronary artery; I25.2 Old myocardial infarction; I25.10 Atherosclerotic heart disease of native coronary artery without angina pectoris; E78.5 Hyperlipidemia, unspecified; I48.0 Paroxysmal atrial fibrillation; I07.1 Rheumatic tricuspid insufficiency; I27.20 Pulmonary hypertension, unspecified; Z79.899 Other long term (current) drug therapy; I49.3 Ventricular premature depolarization; Z79.82 Long term (current) use of aspirin; Z95.5 Presence of coronary angioplasty implant and graft; Z66 Do not resuscitate; I11.0 Hypertensive heart disease with heart failure; Z87.891 Personal history of nicotine dependence; Z82.49 Family history of ischemic heart disease and other diseases of the circulatory system; I95.9 Hypotension, unspecified; Z79.01 Long term (current) use of anticoagulants; R74.01 Elevation of levels of liver transaminase levels; F41.9 Anxiety disorder, unspecified; R79.89 Other specified abnormal findings of blood chemistry
CPT/HCPCS: 36410; 36415; 36573; 36600; 71045; 76937; 80048; 80053; 80061; 81001; 82272; 82550; 82728; 82805; 83036; 83605; 83615; 83690; 83735; 84100; 84145; 84443; 84484; 85025; 85027; 85379; 85610; 85730; 86140; 87040; 87635; 92950; 93005; 93306; 94002; 94003; 94640; 94660; 94760; 96365; 96366; 96368; 96375; 99285